=== PATIENT | female | born 1965 | race Caucasian/White ===

== ENCOUNTER 2020-10-24 18:54 | Inpatient (IN) | payer MEDICAID ==
[~2020-10-24] VITALS: Ht 157.5 cm; Wt 73.5 kg
[2020-10-24 19:10] VITALS: BP 117/62
[2020-10-24] MEDS ORDERED: LEVOFLOXACIN750 MG PO (19:15)
[2020-10-24] MEDS ORDERED: PLAVIX 75 MG TA75 MG PO (19:16)
[2020-10-24] MEDS ORDERED: COREG12.5 MG PO (19:16)
[2020-10-24] MEDS ORDERED: ONDANSETRON HCL4 M2 PO (19:16)
[2020-10-24] MEDS ORDERED: NORVASC 2.5 MG2.5 M1 PO (19:17)
[2020-10-24] MEDS ORDERED: ISOSORBIDE MONO30 M1 PO (19:17)
[2020-10-24] MEDS ORDERED: DIUREX WATER P1 EACH PO (19:17)
[2020-10-24] MEDS ORDERED: NEURONTIN 300M300 M2 PO (19:18)
[2020-10-24] MEDS ORDERED: ASPIRIN325 PO (19:18)
[2020-10-24] MEDS ORDERED: POTASSIUM GLUCO99 M2 PO (19:19)
[2020-10-24 20:50] LABS: ABSOLUTE NEUTROPHILS 4.9 thou/uL (1.4-8.2); BASOPHILS 0.6 % (0.0-2.0); EOSINOPHILS 2.4 % (0.0-3.0); HEMATOCRIT 26.8 % (37.0-47.0); MCH 29.5 pg (26.0-34.0); MCHC 33.6 g/dL (28.0-37.0); MCV 87.7 fL (80.0-100.0); MONOCYTES 9.5 % (1.0-8.0); PLATELET COUNT 415 thou/uL (150-400); POLYS 66.5 % (36.0-66.0); RBC 3.06 mil/uL (4.20-5.00); RDW 15.3 % (10.5-14.5); WBC 7.4 thou/uL (4.0-11.0)
[2020-10-24 20:56] LABS: CALCIUM 8.6 mg/dL (8.5-10.1); CREATININE 0.9 mg/dL (0.6-1.0); POTASSIUM 4.2 mmol/L (3.5-5.1)
[2020-10-24 21:02] LABS: ALBUMIN 2.4 g/dL (3.4-5.0); TOTAL BILIRUBIN 0.3 mg/dL (0.2-1.0)
[2020-10-24 22:36] VITALS: BP 117/68
[2020-10-24 23:02] VITALS: BP 110/77
--- NOTE | 2020-10-25 01:21 | NUR ---
ASSUMED CARE OF PT FROM ER AT 2250HRS. PT IS AOX4 AND LETS NEEDS BE KNOWN. PT WAS ORIENTED TO THE UNIT AND HER ROOM. PT IS DOMINICAN SPEAKING BUT IS ABLE TO COMMUNICATE IN [place]. PT WAS ABLE TO ANSWER ALL ADMISSION RELATED QUESTIONS AND SIGN CONSENTS. PT DENIES PAIN, NAUSEA OR SOA. ORDERS RECEIVED AND STARTED. RIGHT FOOT WOUND PIC TAKEN. PT WAS ABLE TO GET COMFORTABLE AND SLEEP. NO S/S OF ACUTE DISTRESS. WILL CONTINUE TO MONITOR.
[2020-10-25 04:05] VITALS: BP 94/54
--- NOTE | 2020-10-25 14:46 | NUR ---
Case opened to follow for dc planning. Pt known to cm from previous admissions. Pt readmitted and will need additional toe amputation due to osteo. Surgery anticipated today. Pt is covid negative. The pt is from home and lives in an apt with family. Dtr is involved and supportive. Pt speaks both Pakistani and Turkish. Will f/u with [employer] regarding her [place] Medicaid application status.
--- NOTE | 2020-10-25 15:43 | NUR ---
ASSUMED CARE OF PATIENT AT APROX. 0800. ASSESSMENT CHARTED. MEDICATIONS HELD PER NPO STATUS. VSS. PATIENT IS A&OX4 AND SAMI SPEAKING. USING DTR PUBLIC RELATIONS CONSULTANT W DOCTOR VIA CELL PHONE. WOUND CARE PHYSICIAN AND NURSE SAW PATIENT TODAY AND CONSULTED SURGEON FOR LIKELY AMPUTATION. DENIES PAIN AND SENSATION ON R FOOT. C/O NAUSEA AND VOMITING; EMESIS CLEAR AND FOAMY. PATIENT SHOWERED INDEPENDENTLY; IS SBA FOR PRECAUTIONS. CURRENTLY SITTING IN CHAIR WITH ABX INFUSING ON R FA. FALL PRECAUTIONS IN PLACE. PATIENT VOICES NO OTHER NEEDS. WILL CONTINUE TO MONITOR
[2020-10-25 15:53] VITALS: BP 133/66
[2020-10-25 20:23] VITALS: BP 111/65
[2020-10-25 20:47] VITALS: BP 109/61
--- NOTE | 2020-10-25 20:54 | NUR ---
I AGREE WITH NURSING ASSESSMENT AND NURSING NOTE DONE BY CASEY/LOCK ASSEMBLER.
[2020-10-25 22:16] VITALS: BP 114/63
[2020-10-26 00:19] VITALS: BP 115/64
--- NOTE | 2020-10-26 04:05 | NUR ---
PATIENT HAD RIGHT FOOT AMPUTATION. MICA WRAP DRESSING ON RIGHT FOOT, RIGHT FOOT ELEVATED. SNACK AND FLUIDS ENCOURAGED. PATIENT ON 3L OF OXYGEN. PATIENT DENIED PAIN OR DISCOMFORT. PATIENT IN BED ASLEEP AT THIS TIME BREATHING REGULAR AND UNLABOURED.
[2020-10-26 04:10] VITALS: BP 118/66
[2020-10-26 08:13] VITALS: BP 116/63
--- NOTE | 2020-10-26 08:56 | NUR ---
Patient vomitted, green and yellow, looks like bile, about 30ml. Dr. Rico francisco, awaiting response.
--- NOTE | 2020-10-26 12:29 | NUR ---
The staff talked to Dr. Gregorio about the vomitting this AM. patient had some jello and morning medication after vomitting, claiming she has felt any nausea. no vomitting during the past 4 hours.
--- NOTE | 2020-10-26 13:28 | NUR ---
Patient reported that after she had some lunch food from the kitchen, she vomitted out. The staff checked, the emesis looked like food. Patient voiced that she had felt nausea before eating but did not report. Zofran given. patient wanted to try the lunch food again. Patient voiced that she didnot feel nausea or vomitted in the morning when eating jello. Patient guessed her nausea feeling might have been caused by grease in the food. will monitor.
[2020-10-26 16:16] VITALS: BP 118/59
--- NOTE | 2020-10-26 19:23 | NUR ---
Dr. Gómez is aware that patient vomitted today.
[2020-10-26 20:18] VITALS: BP 101/54
[2020-10-27 05:42] LABS: HEMATOCRIT 24.2 % (37.0-47.0); HEMOGLOBIN 7.9 gm/dL (12.0-15.0); MCH 28.4 pg (26.0-34.0); MCHC 32.8 g/dL (28.0-37.0); MCV 86.8 fL (80.0-100.0); RBC 2.79 mil/uL (4.20-5.00); RDW 15.3 % (10.5-14.5); WBC 6.9 thou/uL (4.0-11.0)
[2020-10-27 05:54] LABS: CALCIUM 8.5 mg/dL (8.5-10.1); CREATININE 0.9 mg/dL (0.6-1.0); POTASSIUM 4.2 mmol/L (3.5-5.1)
[2020-10-27 07:33] VITALS: BP 134/69
--- NOTE | 2020-10-27 08:02 | NUR ---
PROGRESS PT REPORTED NAUSEA AND VOMITING ON INITIAL ASSESSMENT ZOFRAN GIVEN WITH NO EFFECT, RIGHT KNOW EMESIS IS CLEAR BUT WAS REPORTED THAT IT WAS BILE COLORED EARLIER IN DAY. PT STATED SHE HAS BEEN VOMITING FOR A MONTH ABDOMEN SOFT BUT BOWELS SOUNDS VERY HYPOACTIVE. LUNGS SOUND DIMINISHED BUT PT MOANING. UP WITH MINIMAL ASSIST TO BSC VOIDING QS. ORDER FOR REGLAN OBTAINED AND 1 DOSE GIVEN WITH GOOD EFFECT PT SLEPT THE REST OF THE NIGHT WITH NO MORE EPISODES OF N/V. DRESSING TO RIGHT FOOT REMAINS C/D/I.
--- NOTE | 2020-10-27 12:36 | NUR ---
PT CONTINUES ON IV ZOSYN Q8 OF THIS NOTE. HOPE IS THAT PT WILL BE ABLE TO TRANSITION TO ORAL ABX. PT'S DTR WILL NEED TO BE TRAINED ON WC AT DISCHARGE. PT WAS GIVEN GOOD RX CARD TO USE TO FILLW HER SCRIPTS AT [facility] UPON DC. PT TO FOLLOW UP [facility] CARES AT SHE HAD BEEN PRIOR TO ADMISSION. LIKELY NO OTHER CM INTERVENTION INDICATED. PT TO DC HOME ONCE MEDICALLY STABLE.
[2020-10-27 16:12] VITALS: BP 116/53
--- NOTE | 2020-10-27 18:08 | NUR ---
ASSUMED CARE OF PATIENT THIS AM. ASSESSMENT CHARTED. MEDS ADMINISTERED PER JAN. PATIENT IS A&OX4 BUT SYRIAC SPEAKING. C/O NAUSEA AND DIZZINES. STATES THIS STARTED AT 1600 10/26/20 AND THAT SHE TRIED TO TELL HER PROVIDERS BUT MAYBE THEY DIDN'T UNDERSTAND. BP WAS STABLE THIS AM BUT O2 SAT WAS 86 ON RA. 88 ON 2L AND FINALLY STABLIZED TO 93% ON 4L. CRACKLES WERE ALSO HEARD ON BILATERAL LOWER LOBES. PROVIDER WAS NOTIFIED AND ORDERED A DIURETIC FOR PATIENT. PATIENT VOIDED OFTEN THIS SHIFT AND VOICED FEELING BETTER AFTER LUNCH. FOUND VOMITING AT 1745 PRIOR TO DINNER; GIVEN ZOFRAN AND OBSERVED FURTHER. ON RA NOW SATURATING AT 98%. PT AND OT WORKED W PATIENT AND DETERMINED UNSAFE TO GO HOME W/O ASSISTANCE BUT PATIENT IS UNINSURED. KEYES TIFFANY NOTIFIED AND KEELYGHTER TO COME FOR WOUND CARE EDUCATION PRIOR TO DISCHARGE. STILL C/O DIZZINES AND NAUSEA. WILL ENDORSE TO EFRAIN MENDEZ
[2020-10-27 19:03] VITALS: BP 115/58
--- NOTE | 2020-10-28 01:44 | NUR ---
patient aox4 makes needs known. patient denied pain or discomfort. patient dressing on the right foot is c/d/i. patient encouraged to elevate the right foot. scd on left foot. fall precaution in place. patient in bed asleep at this time breathing regular and unlaboured.
[2020-10-28 05:03] LABS: HEMATOCRIT 25.4 % (37.0-47.0); HEMOGLOBIN 8.3 gm/dL (12.0-15.0); MCH 28.7 pg (26.0-34.0); MCHC 32.8 g/dL (28.0-37.0); MCV 87.3 fL (80.0-100.0); RBC 2.91 mil/uL (4.20-5.00); RDW 15.6 % (10.5-14.5); WBC 6.8 thou/uL (4.0-11.0)
[2020-10-28 05:16] LABS: CALCIUM 8.6 mg/dL (8.5-10.1); CREATININE 0.9 mg/dL (0.6-1.0)
[2020-10-28 06:55] VITALS: BP 143/85
--- NOTE | 2020-10-28 14:44 | HC ---
[facility] [place] [address] CONSULTATION Name: ENRRIQUE VILLEGAS Room #: 454-P ADM IN M.R.#: [id number] Admission: 10/24/20 Attend Phys: Vic Garza MD Discharge: Date of : 69 Report #: [id number] THIS REPORT FOR: cc: FAM - No family physician/PCP FAM - No family physician/PCP Alfie Melendez MD ~ DATE OF SERVICE: 10/25/2020 CHIEF COMPLAINT: Necrosis to the foot. HISTORY OF PRESENT ILLNESS: This is a 55-year-old female patient with whom we are familiar from previous hospitalization with diabetes mellitus, who had had previous gangrenous changes to her right foot. She underwent amputation of fourth and fifth toes and metatarsals. She has returned today with a breakdown of the incision line and now necrosis of the third toe. She has some mild pain associated with this. Otherwise feels fairly well. PAST MEDICAL HISTORY: Significant for the fourth and fifth toe amputations on 09/24/2020. She has a history of cardiomyopathy with an EF of 15-20%, peripheral arterial disease, having undergone stent placements with Interventional Radiology to the superficial femoral artery, right tibioperoneal trunk. The patient has a history of diabetes mellitus, hyperlipidemia and previous cardiac arrest. ALLERGIES: No known drug allergies. SOCIAL HISTORY: Positive for occasional alcohol use. No history of tobacco use. FAMILY HISTORY: Noncontributory. MEDICATIONS: Levaquin, carvedilol, Plavix, Zofran, Norvasc, Neurontin, aspirin, potassium gluconate. REVIEW OF SYSTEMS: CONSTITUTIONAL: The patient denies fever, chills or weight loss. NEUROLOGICAL: The patient denies focal weakness, but does have some neuropathy to her lower extremities. ENT: The patient denies earache, nasal drainage, sore throat. CARDIOVASCULAR: The patient denies chest pain, palpitations or diaphoresis. PULMONARY: The patient denies cough or shortness of breath. GASTROINTESTINAL: The patient denies nausea, vomiting, diarrhea or abdominal pain. ORTHOPEDIC: The patient has swelling and drainage and some discomfort to the [facility] [address] [place] [address] CONSULTATION Name: ENRRIQUE VILLEGAS Room #: 454-P [facility] IN [facility]#: [id number] Admission: 10/24/20 Attend Phys: Vic Garza MD Discharge: Date of : 69 Report #: [id number] right foot. Other systems in a 14-point review of systems are negative. PHYSICAL EXAMINATION: VITAL SIGNS: At this time include temperature 37.2, pulse 93, respiratory rate 16, blood pressure 94/54. GENERAL: This is a somewhat chronically ill-appearing female patient, who appears to be in minimal distress. HEENT: Head normocephalic. Nose and throat are clear. NECK: Supple. ABDOMEN: Soft. Bowel sounds present. EXTREMITIES: Examination of the lower extremities demonstrates the incision line to the lateral aspect of the right foot is necrotic with additional tissue loss. The third toe is ischemic-appearing and peeling and partially necrotic as well. LABORATORY DATA: Include sodium 135, potassium 4.2, chloride 101, CO2 of 24, BUN 17, glucose 213. Albumin 2.4. White blood cell count 7.4 with a hemoglobin of 9.0. CLINICAL IMPRESSION: Necrosis of the right lateral foot, status post prior fourth and fifth toe amputation, now with ischemia of the third toe in the incision line. RECOMMENDATIONS: At this point in time, we will recheck arterial Doppler to evaluate previous blood flow post-stenting approximately a month ago. She will require transmetatarsal amputation. I do not think there is anything that will salvage the existing third toe or the incision line. I discussed this with her in detail. We will use simple dry dressings for now with Betadine paint to the areas of necrosis. I appreciate being asked to see her in consultation. <ELECTRONICALLY SIGNED> By: Alfie Melendez MD 10/28/20 1444 [id number] Alfie Melendez MD /nt
[2020-10-28 15:17] VITALS: BP 117/62
--- NOTE | 2020-10-28 19:32 | NUR ---
Patient felt nausea, ate food brought from the . no vomitting after eating, vomitted salvia in the morning before lunch. Claimed of being weak.
[2020-10-28 20:45] VITALS: BP 118/59
--- NOTE | 2020-10-29 03:16 | NUR ---
PROGRESS PT DROWSY BUT ALERT AND ORIENTED.REPORTS PAIN TO RIGHT FOOT RATES IT A 3 TO 10 TAKING OXYCODONE AND GABAPENTIN WITH EFFECT PT SLEEPS AFTER. IV ANTIBIOTICS CONTINUE ORDERED. AFEBRILE VSS TELE INTACT READING SR/ST. LUNGS DIMINISHED BUT NOT WET SOUNDING THIS SHIFT. ACCUCHECKS AND SSI CONTINUE, PT TOLERATING CLEAR LIQUIDS IN SMALL AMOUNTS, BS HYPOACTIVE ABDOMEN SOFT NON-DISTENDED. VOIDING QS UP TO BSC WITH SBA.
[2020-10-29 06:58] VITALS: BP 120/76
--- NOTE | 2020-10-29 14:59 | NUR ---
ASSUMED PT CARE THIS AM. PT VSS, A&OX4. PT HAS NO COMPLAINTS OF PAIN. MEDS TAKEN WITHOUT COMPLAINT. WOUND DRESSING C/D/I. PT GOAL WAS TO WORK WITH PHYSICAL THERAPY TO GET STRONGER, BUT WORKED MINIMALLY WITH THEM TODAY. IV PATENT. WILL CONTINUE TO MONITOR.
[2020-10-29 16:18] VITALS: BP 117/67
[2020-10-29 19:28] VITALS: BP 106/56
--- NOTE | 2020-10-29 20:49 | NUR ---
THIS NURSE GAVE PATIENT INITIAL MEDICATIONS BEFORE TRANSFERRING TO SICU TO TAKE NEW PATIENTS. PATIENT ALERT AND ORIENTED X4. UP WITH ONE ASSIST TO BSC. DENIES PAIN. COOPERATIVE WITH CARE. BS MONITORED PER ORDER, NO INSULIN NEEDED TONIGHT WITH BS OF 148. RESTING QUIETLY.
[2020-10-30 04:53] VITALS: BP 107/66
[2020-10-30 08:10] VITALS: BP 118/64
--- NOTE | 2020-10-30 08:45 | NUR ---
PT LYING IN BED. DENIES PAIN. RESTING COMFORTABLY. NO NEEDS VOICED. CALL LIGHT WITHIN REACH. FREQUENT OBSERVATION.
--- NOTE | 2020-10-30 08:46 | NUR ---
PT LYING IN BED. DENIES PAIN. RESTING COMFORTABLY. NO NEEDS VOICED. CALL LIGHT WITHIN REACH. FREQUENT OBSERVATION.
[2020-10-30 08:55] VITALS: BP 118/64
[2020-10-30] MEDS ORDERED: PERCOCET PO (09:24)
[2020-10-30] MEDS ORDERED: AUGMENTIN 875-1 EACH PO (09:25)
--- NOTE | 2020-10-30 12:23 | NUR ---
ASSUMED PT CARE THIS AM. PT VSS, A&OX4. PT IV PATENT, FLUIDS INFUING WELL. NO COMPLAINTS OF PAIN. DRESSING C/D/I. PT IS CONTINENT OF B&B, PIVOTS TO THE BSC. MEDS TAKEN WITHOUT COMPLAINT. ON ROOM AIR. PT TO BE DISCHARGED TO HOME. IN DISCHARGE INSTRUCTIONS, PT TO CHANGE DRESSING WITH SUPPLIES. GAS ANALYST REPORTED THAT SHE WOULD CONTACT WOUND CARE TEAM TO SEE IF THEY COULD SEND PATIENT HOME WITH SUPPLIES IN ORDER TO BE ABLE TO CHANGE THIS DRESSING. SUPPLIES TO BE SENT UP. PT NEW ANTIBIOTIC FILLED IN OUTPATIENT PHARMACY, SENT WITH PT ALONG WITH OTHER PRESCRIPTION.
--- NOTE | 2020-10-30 12:59 | NUR ---
ON-GOING ASSESSMENT: CM REVIEWED CHART AND SPOKE WITH ATTENDING. PT HAS ORDERS TO DISCHARGE HOME TODAY. PT REPORTS NEEDING SOME ASSISTANCE WITH PAYING FOR PO ANTIBIOTIC. CM COPIED SCRIPT AND SENT TO [facility] OUT[facility] AND MEDICATIONS COST 12.42 AND WILL BE VOUCHERED THROUGH CASE MANAGEMENT. APPROVAL PER CM DIRECTOR. CM ALSO SPOKE WITH WOUND CARE WHO PROVIDED PATIENT WITH SOME HOME SUPPLIES DUE TO NO INSURANCE AND FINANCIAL STRESSORS. PT ENCOURAGED TO FOLLOW UP WITH OUTPATIENT WOUND CARE. PT ALSO PROVIDED SAFETY NET PACKET/HEALTH RESOURCE GUIDE. PT REPORTS NO FURTHER NEEDS FROM CM.
--- NOTE | 2020-10-31 16:44 | O ---
[facility] [place] [address] OPERATIVE REPORT Name: ENRRIQUE VILLEGAS Room #: 444-P [facility] IN .R.#: [id number] Admission: 10/24/20 Attend Phys: Vic Garza MD Discharge: 10/30/20 Date of : 69 Report #: [id number] THIS REPORT FOR: cc: FAM - No family physician/PCP FAM - No family physician/PCP Amandeep Rollins MD ~ CC: [facility] physician/PCP Vic Garza DATE OF SERVICE: 10/25/2020 SERVICE: Orthopedics. FACILITY: [place] [facility]. SURGEON: Amandeep Rollins MD PLUG GROWER: Sandra Okeefe. PREOPERATIVE DIAGNOSES: 1. Necrosis of the right third toe. 2. Osteomyelitis, right third toe. 3. Wound dehiscence with nonhealing wound of right forefoot. 4. Uncontrolled diabetes. 5. Peripheral arterial disease. 6. Nonhealing wound, right forefoot. POSTOPERATIVE DIAGNOSES: 1. Necrosis of the right third toe. 2. Osteomyelitis, right third toe. 3. Wound dehiscence with nonhealing wound of right forefoot. 4. Uncontrolled diabetes. 5. Peripheral arterial disease. 6. Nonhealing wound, right forefoot. PROCEDURE: Right foot transmetatarsal amputation. COMPLICATIONS: None. DRAINS: None. SPECIMENS: Forefoot. HISTORY: The patient is a female with history of uncontrolled diabetes, who recently underwent fourth and fifth ray amputations with an effort to preserve the foot, which she had worsening of the wound recently and developed necrosis [facility] [address] [place] [address] OPERATIVE REPORT Name: JOSIAH DERASUEROAENRRIQUE Room #: 444-P DIS IN M.R.#: [id number] Admission: 10/24/20 Attend Phys: Vic Garza MD Discharge: 10/30/20 Date of : 69 Report #: [id number] of the third toe. X-rays were consistent with osteomyelitis of the metatarsal shaft distally. She was indicated for revision surgical treatment and I recommended a below-knee amputation versus transmetatarsal amputation recognizing that the BKA gave her the highest chance of successful onetime healing. Given this, however, she still elected to proceed with limb salvage in hopes of achieving successful healing of the wound after transmetatarsal amputation. Risks, benefits, alternatives, and indication of surgery discussed with her, her boyfriend and her daughter and their questions were all answered. Risks include need for further surgery including revision to below-knee amputation as well as following the surgery. PROCEDURE IN DETAIL: After the right lower extremity was correctly identified in the preoperative holding area as the operative extremity, the patient was taken to the operating room where general anesthesia was induced without complication. She was padded appropriately. She was on antibiotic regimen intraoperatively. Right leg was prepped and draped in standard sterile fashion. Time-out procedure was performed. The previous sutures were removed and then using a sharp blade, a generous Pfannenstiel-type incision was created and went with the operative preserving as much of the plantar soft tissues possible as well as dorsal soft tissue and dissection was taken down to the bone where the first, second and third metatarsal was then truncated with the bone cutter. The bony dissection was fine-tuned to eliminate any small edges and the wound was irrigated. Hemostasis was achieved. The previous necrotic wound edges were excised sharply and overall there was good bleeding throughout the forefoot. The soft tissue was assessed for mobility. I felt that there was some additional reduction and tension would be appropriate and so a rongeur was used to perform a limited revision through the osseous amputation site of the fourth and the fifth. There is no evidence of residual osteomyelitis in this bone, but had been close to a nonhealing wound and so I felt that revision was most appropriate. After the third, second and first toes were resected, the soft tissue was debulked. We confirmed bleeding skin edges on all sides and then the soft tissue in general was assessed for overall mobility. This soft tissue repair allowed for the skin to be repaired under less tension. The 0 PDS suture was used to advance the plantar flap laterally up to the dorsal flap and secure knots were achieved without excessive tension. This was carried from laterally to medially. We did have a preplanned skin flap, which was obtained initially so as to give us the best options for coverage. Ultimately, the revision of the fourth and fifth ray amputation allowed for some additional soft tissue mobilization and this did approximate well. The repair was carried on to the medial side of the foot and then the wound was irrigated and the repair was found to be structurally sound. Sterile dressing was applied. The patient was [address] [address] OPERATIVE REPORT Name: ENRRIQUE VILLEGAS Room #: 444-P [facility] IN M.R.#: [id number] Admission: 10/24/20 Attend Phys: Vic Garza MD Discharge: 10/30/20 Date of : 69 Report #: [id number] awakened from anesthesia and taken to recovery room in stable condition. No complications. All counts were reported correct. <ELECTRONICALLY SIGNED> By: Amandeep Rollins MD 10/31/20 1644 [id number] Amandeep Rollins MD /nt
--- NOTE | 2020-11-01 13:08 | PATH ---
[facility] [address] [place] [address] PATHOLOGY RPT PROCEDURE Name: GENO VILLEGAS Room #: 444-P [facility] IN M.R.#: [id number] Admission: 10/24/20 Date of : 69 Discharge: 10/30/20 Report #: [id number] Path Case #: [id number] [facility] Accession Number: [id number] . 01 Material submitted: . foot - RIGHT FOREFOOT. Modifiers: right . 01 Clinical history: . OSTEOMYELITIS . 02 Diagnosis: Bone and soft tissue "right forefoot", amputation: - Multifocal chronic osteomyelitis, with areas of marked acute inflammation, and abscess formation, with associated periostitis and cellulitis. - Multifocal vascular thrombi. - Negative for malignancy. (PILAR/blossom; 10/31/2020) LBQ 11/01/2020 1237 Local . 02 Electronically signed: . Edgar Baez MD, Pathologist NPI- [id number] . 01 Gross description: . . The specimen is received in formalin, labeled "Geno Villegas, right forefoot" and consists of a partial right forefoot consisting of toes 1, 2, and 3 measuring 8.0 x 7.7 x 2.4 cm. All 3 toes have intact pink jenkins nails. Toe 1 is grossly unremarkable. Toe 2 is predominately unremarkable with focal skin sloughing and possible necrosis towards the proximal margin. Toe 3 shows sloughing of the skin with necrosis/mummification which grossly abuts the proximal margin. All 3 bone margins are flat to jagged and irregular. Also received in the container are segments of pink-jenkins skin and bone measuring 7.8 x 7.8 x 2.0 cm. Industrial Psychology Teacher sections are submitted as follows after decalcification: . A1: Toe 1 proximal margin A2: Toe 2 proximal margin A3-A5: Toe 3 from proximal to distal A6: Additional skin and bone (SDY; 10/30/2020) SYU/SYU 10/30/2020 1310 Local . 02 Pathologist provided ICD-10: M86.671, L98.9, L03.031 [place] [address] PATHOLOGY RPT PROCEDURE Name: GENO VILLEGAS Room #: 444-P DIS IN M.R.#: [id number] Admission: 10/24/20 Date of : 69 Discharge: 10/30/20 Report #: [id number] Path Case #: [id number] . 02 CPT . [id number], [id number] Specimen Comment: A courtesy copy of this report has been sent to [phone] Specimen Comment: [id number] Specimen Comment: Report sent to / DR ALEJANDRO Performed at: [address], [place] [id number] MD Mitul Zelaya MD Phone: [phone] Performed at: [address] [id number] MD Aleyda Gilliland MD Phone: [phone]
== END 2020-10-30 14:27 | disposition home or self-care (01) | DRG 239 ==
LOC: ER 18:54 → EROBS 21:45 → 4S 21:45 → 4W 22:49 → 4S 10-29 07:45
PROVIDERS: Hospitalist; Physician Assistant; ADMIT Internal Medicine; ATTEND Internal Medicine
PROC: 0Y6M0ZC Detachment at Right Foot, Partial 3rd Ray, Open Approach (ICD-10-PCS; principal; 2020-10-25)
PROC: 0Y6M0ZB Detachment at Right Foot, Partial 2nd Ray, Open Approach (ICD-10-PCS; principal; 2020-10-25)
PROC: 0Y6M0Z9 Detachment at Right Foot, Partial 1st Ray, Open Approach (ICD-10-PCS; principal; 2020-10-25)
PROC: 0Y6M0ZF Detachment at Right Foot, Partial 5th Ray, Open Approach (ICD-10-PCS; principal; 2020-10-25)
PROC: 0Y6M0ZD Detachment at Right Foot, Partial 4th Ray, Open Approach (ICD-10-PCS; principal; 2020-10-25)
DX: E11.52 Type 2 diabetes mellitus with diabetic peripheral angiopathy with gangrene (principal); J18.9 Pneumonia, unspecified organism; I42.9 Cardiomyopathy, unspecified; M86.8X7 Other osteomyelitis, ankle and foot; I96 Gangrene, not elsewhere classified; E11.69 Type 2 diabetes mellitus with other specified complication; R09.02 Hypoxemia; S91.301A Unspecified open wound, right foot, initial encounter; E11.51 Type 2 diabetes mellitus with diabetic peripheral angiopathy without gangrene; X58.XXXA Exposure to other specified factors, initial encounter; I11.0 Hypertensive heart disease with heart failure; I50.9 Heart failure, unspecified; Z20.828 Contact with and (suspected) exposure to other viral communicable diseases; E78.5 Hyperlipidemia, unspecified; Z79.82 Long term (current) use of aspirin; Z79.899 Other long term (current) drug therapy; Z79.01 Long term (current) use of anticoagulants; Y93.89 Activity, other specified; Y92.89 Other specified places as the place of occurrence of the external cause; Y99.8 Other external cause status; Z90.49 Acquired absence of other specified parts of digestive tract
CPT/HCPCS: 10040; 10045; 10102; 50010; 50101; 50386; 50951; 56525; 57091; 62110; 62900; 70005

== ENCOUNTER 2020-11-01 22:25 | Inpatient (IN) | payer MEDICAID ==
[~2020-11-01] VITALS: Ht 157.5 cm; Wt 69.1 kg
--- NOTE | ~2020-11-01 | HC ---
[facility] [place] [address] CONSULTATION Name: ENRRIQUE VILLEGAS Room #: 214-P ADM IN M.R.#: [id number] Admission: 11/02/20 Attend Phys: Tyler Hallman Discharge: Date of : 69 Report #: [id number] THIS REPORT FOR: cc: NO FAMILY PHYSICIAN or PCP NO FAMILY PHYSICIAN or PCP Gabriel Allred MD ~ DATE OF SERVICE: 11/07/2020 HISTORY OF PRESENT ILLNESS: This is a 55-year-old female patient who was evaluated by me for altered mental status. She is German speaking and hence, the history is somewhat difficult. She does understand some Maltese. Luckily, we also had a German-speaking nurse who was able to translate and she is the one who noticed that this patient was having some alteration in her mental status. She tells me that sometimes, the patient will be okay and other times, her mentation is not very good. I called Dr. Rocha, who is the hospitalist and talked to her. This patient had a below-knee amputation and presently, she is being seen by multiple consultants. She was admitted with right toe pain and discharge. REVIEW OF SYSTEMS: Positive for diabetes, hypertension, right leg amputation, hypothyroidism, peripheral vascular disease, congestive heart failure, cardiomyopathy, hysterectomy, cardiac stents. This was a relevant 14-point review of systems. PAST MEDICAL HISTORY: Positive for multiple vascular disease and cardiac condition. FAMILY HISTORY: Unremarkable. SOCIAL HISTORY: She said she does not smoke or drink alcohol. PHYSICAL EXAMINATION: Indicates she is alert and responsive. As far as mental status examination can be done, it appears unremarkable. Cranial nerve examination, 2-12 was carried out. She said she sees double when I close just one eye. She also sees double but she says she sees the object and then she sees the shadow. I could not look at the fundus. Her both upper extremities moves well and right lower extremity is amputated but she says she can feel the touch on the left side. Her reflexes are difficult to tell because she did not relax. There is no meningeal sign. Cardiorespiratory examination is unremarkable. Blood pressure is 136/77, temperature is 98. LABORATORY DATA: Indicates hemoglobin of 8. Her TSH is normal. She did have a CT scan of the head, which does not show any definite abnormality. [address] [address] CONSULTATION Name: JOSIAH WHITAKERENRRIQUE Room #: 214-P [facility] IN ..#: [id number] Admission: 11/02/20 Attend Phys: Tyler Hallman Discharge: Date of : 69 Report #: [id number] IMPRESSION: This patient had numerous problems during this hospitalization. I suspect some encephalopathy is expected but the patient has so many vascular risk factors that will be desirable to rule out any AGER OPERATOR pathology. I will suggest an MRI of the brain if it can be done and she does not have any contraindication and nurses tell me they will check and I will also get an EEG done. We will see if that shows any pathology and what clinical course she takes. More than 50 minutes of time was spent taking care of this patient today and majority was spent counseling and coordinating. By: 1234 2255 Gabriel Allred MD /nt
--- NOTE | ~2020-11-01 | EEG ---
[facility] [place] [address] ELECTROENCEPHALOGRAM Name: ENRRIQUE VILLEGAS Room #: 214-P ADM IN M.R.#: [id number] Admission: 11/02/20 Attend Phys: Tyler Bales Discharge: Date of : 69 Report #: [id number] THIS REPORT FOR: //name// DATE OF SERVICE: 11/07/2020 This patient is being evaluated for episode of altered mental status. EEG was done by placing the electrode by standard 10-20 system of electrode placement. Both referential and sequential montages were used for recording. Background activity in this patient's EEG is about 7-8 Hz and 30 microvolt. The patient became drowsy that is associated with bilateral slowing and vertex sharp waves. Photic stimulation is unremarkable. Throughout the record, no active epileptiform activity was noticed. IMPRESSION: This patient's EEG is intermixed with some theta range slowing. That is a nonspecific finding, which can occur with encephalopathy, effect of psychotropic medication, dementia, etc. Clinical correlation is recommended. By: 1746 [id number] Gabriel Allred MD /nt
[~2020-11-01 22:25] MED LIST: ASPIRIN325 PO; AUGMENTIN 875-1 EACH PO; COREG12.5 MG PO; DIUREX WATER P1 EACH PO; ISOSORBIDE MONO30 M1 PO; LEVOFLOXACIN750 MG PO; NEURONTIN 300M300 M2 PO; NORVASC 2.5 MG2.5 M1 PO; ONDANSETRON HCL4 M2 PO; PERCOCET PO; PLAVIX 75 MG TA75 MG PO; POTASSIUM GLUCO99 M2 PO
[2020-11-01 22:27] VITALS: BP 132/67
[2020-11-01 23:25] LABS: ABSOLUTE NEUTROPHILS 5.1 thou/uL (1.4-8.2); BASOPHILS 0.6 % (0.0-2.0); EOSINOPHILS 1.7 % (0.0-3.0); HEMATOCRIT 26.7 % (37.0-47.0); HEMOGLOBIN 8.9 gm/dL (12.0-15.0); LYMPHOCYTES 20.1 % (24.0-44.0); MCH 28.6 pg (26.0-34.0); MCHC 33.5 g/dL (28.0-37.0); MCV 85.3 fL (80.0-100.0); MONOCYTES 8.3 % (1.0-8.0); PLATELET COUNT 527 thou/uL (150-400); POLYS 69.3 % (36.0-66.0); RBC 3.12 mil/uL (4.20-5.00); RDW 15.6 % (10.5-14.5); WBC 7.3 thou/uL (4.0-11.0)
[2020-11-01 23:39] LABS: POTASSIUM 3.6 mmol/L (3.5-5.1)
[2020-11-02 01:15] VITALS: BP 138/74
[2020-11-02 01:37] VITALS: BP 128/69
[2020-11-02 01:55] VITALS: BP 124/62
[2020-11-02 02:40] VITALS: BP 129/73
[2020-11-02 06:40] VITALS: BP 121/65
[2020-11-02 07:51] VITALS: BP 131/73
[2020-11-03 08:10] LABS: INR 1.2; PROTIME 12.4 Seconds (9.3-11.4)
[2020-11-03 08:30] VITALS: BP 115/71
[2020-11-03] MEDS ORDERED: IMDUR 30 MG TAB30 M1 PO (09:40)
[2020-11-03 13:22] LABS: BE(vivo) -1.2 mmol/L (-2 to +3); HCO3 24.1 mmol/L (22.0-26.0); PCO2 42.7 mmHg (35.0-45.0); PO2 75.8 mmHg (80.0-100.0); pH 7.369 (7.360-7.450); sO2 94.8 % (92.0-98.0)
[2020-11-03 16:20] VITALS: BP 127/75
[2020-11-03 23:07] LABS: GLYCOHEMOGLOBIN (HGB A1C) 7.9 % (4.8-5.6)
[2020-11-04 03:22] VITALS: BP 112/67
[2020-11-04 07:52] VITALS: BP 116/71
[2020-11-04 15:32] VITALS: BP 101/56
[2020-11-04 21:05] VITALS: BP 106/61
[2020-11-05] VITALS (7 sets, daily range): BP systolic 104–137; BP diastolic 58–72
[2020-11-05 09:46] LABS: ABSOLUTE NEUTROPHILS 5.7 thou/uL (1.4-8.2); BASOPHILS 0.5 % (0.0-2.0); HEMOGLOBIN 6.7 gm/dL (12.0-15.0); RDW 16.4 % (10.5-14.5)
[2020-11-05 09:48] LABS: EOSINOPHILS 0.2 % (0.0-3.0); LYMPHOCYTES 16.4 % (24.0-44.0); MCH 27.7 pg (26.0-34.0); MCHC 31.9 g/dL (28.0-37.0); MCV 86.7 fL (80.0-100.0); MONOCYTES 8.5 % (1.0-8.0); PLATELET COUNT 371 thou/uL (150-400); POLYS 74.4 % (36.0-66.0); RBC 2.42 mil/uL (4.20-5.00); WBC 7.7 thou/uL (4.0-11.0)
[2020-11-05 09:58] LABS: CALCIUM 8.4 mg/dL (8.5-10.1); CREATININE 1.8 mg/dL (0.6-1.0); MAGNESIUM 2.3 mg/dL (1.8-2.4); PHOSPHORUS 4.2 mg/dL (2.5-4.9); POTASSIUM 4.3 mmol/L (3.5-5.1)
[2020-11-05 20:16] LABS: HEMATOCRIT 24.7 % (37.0-47.0)
[2020-11-06 04:30] LABS: CALCIUM 8.6 mg/dL (8.5-10.1); CREATININE 1.5 mg/dL (0.6-1.0); MAGNESIUM 2.1 mg/dL (1.8-2.4); PHOSPHORUS 3.4 mg/dL (2.5-4.9); POTASSIUM 3.7 mmol/L (3.5-5.1)
[2020-11-06 04:45] LABS: ABSOLUTE NEUTROPHILS 5.8 thou/uL (1.4-8.2); BASOPHILS 0.5 % (0.0-2.0); EOSINOPHILS 0.7 % (0.0-3.0); HEMATOCRIT 24.9 % (37.0-47.0); MCH 27.6 pg (26.0-34.0); MCHC 32.1 g/dL (28.0-37.0); MONOCYTES 10.7 % (1.0-8.0); PLATELET COUNT 400 thou/uL (150-400); POLYS 70.1 % (36.0-66.0); RBC 2.89 mil/uL (4.20-5.00); RDW 16.5 % (10.5-14.5); WBC 8.3 thou/uL (4.0-11.0)
[2020-11-06 04:57] VITALS: BP 124/71
[2020-11-06 08:23] VITALS: BP 128/78
--- NOTE | 2020-11-06 09:35 | 2DMMODE ---
[facility] [address] [place] [address] 2 D/M-MODE ECHOCARDIOGRAM Name: JOSIAH WHITAKERENRRIQUE Room #: 214-P ADM IN M.R.#: [id number] Admission: 11/02/20 Attend Phys: Tyler Hallman Discharge: Date of : 69 Report #: [id number] THIS REPORT FOR: cc: NO FAMILY PHYSICIAN or PCP NO FAMILY PHYSICIAN or PCP Felix Augustine MD [facility] ~ APPROVED REPORT Study performed: 11/06/2020 08:56:31 EXAM: Limited 2D, Doppler, and color-flow Echocardiogram Patient Location: Bedside Room #: 214 Status: routine BSA: 1.71 HR: 82 bpm BP: 128/78 mmHg Rhythm: NSR Other Information Study Quality: Good Indications Limited follow up echo for CHF, Short of breath. (Last echo done 09/27/20). Hx: Cardiac arrest, stents, ISCM (15-20%). 2D Dimensions IVSd: 8.12 (7-11mm) LVDd: 52.99 mm PWd: 9.97 (7-11mm) LVDs: 43.97 (25-40mm) Aortic Valve AoV Peak Maico.: 1.37 m/s AO Peak Gr.: 7.52 mmHg Mitral Valve E/A Ratio: 1.9 MV Decel. Time: 165.71 ms MV E Max Maico.: 1.51 m/s MV A Maico.: 0.81 m/s MV PHT: 48.06 ms IVRT: 72.66 ms [facility] [address] [place] [address] 2 D/M-MODE ECHOCARDIOGRAM Name: JOSIAH DERASENRRIQUE CRABTREE Room #: 214-P [facility] IN M.R.#: [id number] Admission: 11/02/20 Attend Phys: Tyler Madrigal Discharge: Date of : 69 Report #: [id number] Tricuspid Valve TR Peak Maico.: 3.50 m/s RAP Estimate: 10.00 mmHg TR Peak Gr.: 49.08 mmHg PA Pressure: 59.00 mmHg Left Ventricle The left ventricle is normal size. There is normal left ventricular wall thickness. Left ventricular systolic function is moderately decreased. LVEF 35%. Inferobasal aneurysm with associated thrombus. Moderate diastolic dysfunction is present (pseudonormal filling). Right Ventricle The right ventricle is normal size. The right ventricular systolic function is normal. Atria Left atrium is dilated. The right atrium size is normal. Aortic Valve Aortic valve leaflets are mildly sclerotic. Mild aortic regurgitation. There is no aortic valvular stenosis. Mitral Valve The mitral valve is normal in structure. Moderate mitral regurgitation. Tricuspid Valve The tricuspid valve is normal in structure. Mild to moderate tricuspid regurgitation. Estimated PAP is 55-60mmHg. Great Vessels IVC is dilated and collapses >50% with inspiration. Pericardium Small pericardial effusion. Pleural effusion noted. <Conclusion> Abbreviated study Left ventricular systolic function is moderate-severely decreased. LVEF 35%. Inferobasal aneurysm with associated thrombus. Moderate diastolic dysfunction is present (pseudonormal filling). [facility] [address] [place] [address] 2 D/M-MODE ECHOCARDIOGRAM Name: ENRRIQUE VILLEGAS Room #: 214-P [facility] IN ..#: [id number] Admission: 11/02/20 Attend Phys: Tyler Madrigal Discharge: Date of : 69 Report #: [id number] Left atrium is dilated. Aortic valve leaflets are mildly sclerotic. Mild aortic regurgitation, no stenosis. The mitral valve is normal in structure. Moderate mitral regurgitation. Small pericardial effusion. Pleural effusion noted. <ELECTRONICALLY SIGNED> By: Felix Augustine MD, FACC 11/06/2035 4 4 Felix Augustine MD, FACC /INF
--- NOTE | 2020-11-06 10:01 | HC ---
[facility] [place] [address] CONSULTATION Name: ENRRIQUE VILLEGAS Room #: 214-P ADM IN M.R.#: [id number] Admission: 11/02/20 Attend Phys: Tyler Hallman Discharge: Date of : 69 Report #: [id number] THIS REPORT FOR: cc: NO FAMILY PHYSICIAN or PCP NO FAMILY PHYSICIAN or PCP Troy John MD ~ DATE OF SERVICE: 11/02/2020 WOUND CARE CONSULTATION PERSONAL PHYSICIAN: None. CHIEF COMPLAINT: Right foot gangrene. HISTORY OF PRESENT ILLNESS: The patient is a 55-year-old female who we have been following for initially, a right great toe wound which subsequently ended up with an amputation. This subsequently failed and the patient was then treated with a transmetatarsal amputation several days ago. The patient supposedly was at home and daughter noticed that the amputation site was becoming black. They contacted Dr. Rollins who recommended they come to the hospital to be evaluated. The patient now is being evaluated for a possible kgemj-yuh-thaw amputation. Prior to this, the patient did have fairly significant peripheral arterial disease, which was treated with angioplasty and stents. The patient himself denies any actual pain right now. The patient states that she has had a low-grade fever and chills. The patient states that she has had no other associated wounds. PAST MEDICAL HISTORY: Significant for diabetes; hypertension; coronary artery disease, congestive heart failure; severe peripheral arterial disease, status post intervention. The initial measures for limb salvage, which was initially toe amputation, now transmetatarsal amputation, both of which have failed. CURRENT MEDICATIONS: Multiple. I reviewed the patient's medication list. The patient is on vancomycin and Zosyn. DRUG ALLERGIES: None. SOCIAL HISTORY: The patient does not smoke or drink alcohol. Lives independently. FAMILY HISTORY: Not pertinent to current medical condition. REVIEW OF SYSTEMS: CONSTITUTIONAL: The patient had low-grade fevers and chills. [address] [address] CONSULTATION Name: JOSIAH DERASREINALDO CRABTREEA Room #: [address] [place] [address] [place] ..#: [id number] Admission: 11/02/20 Attend Phys: Tyler Hallman Discharge: Date of : 69 Report #: [id number] NEUROLOGIC: The patient denies numbness, tingling, weakness in arms or legs. EYES: No complaints. ENT: No complaints. CARDIAC: The patient denies chest pain, palpitations or peripheral edema. RESPIRATORY: The patient denies shortness of breath, cough or wheezes. GASTROINTESTINAL: The patient denies nausea, vomiting or abdominal pain. GENITOURINARY: The patient denies urgency or frequency. MUSCULOSKELETAL: No complaints. SKIN: There is dry gangrene to the right foot. PHYSICAL EXAMINATION: VITAL SIGNS: Stable. The patient is afebrile. GENERAL: This is an alert and oriented x 3, pleasant female who is in no acute distress. HEENT: Normocephalic, atraumatic. Mucous membranes are somewhat dry. Pupils are round. Sclerae are white. NECK: Without JVD. LUNGS: Clear. HEART: Regular. ABDOMEN: Soft, nontender. EXTREMITIES: Evaluation of right lower extremity reveals 1+ dorsalis pedis pulse. The transmetatarsal amputation site is black and necrotic. It is fairly dry with occasional bloody drainage without significant odor. Slightly tender to palpation. Right heel is intact. Left lower extremity is totally intact. NEUROLOGIC: Cranial nerves 2-12 grossly intact. Motor and sensory grossly intact. LABORATORY DATA: White count 7.3, hemoglobin 8.9. Sed rate 95. BUN 14, creatinine 1.0. C-reactive protein is 159. Albumin 2.4. X-ray of the foot shows irregular cortical margins of the mid foot suggestive of osteomyelitis. WOUND CARE COURSE: I had a long discussion with the patient, her daughter by phone and the patient's family in regard to proceeding with a wlfsc-hpu-pdez amputation. The patient and everyone is agreeable to proceeding with bsfls-jbz-mphs amputation at this time given the failed measures trying to salvage the limb. I spent greater than 30 minutes talking with the family about this. I also spoke with Dr. Amandeep Rollins and reviewed this with him. He is in agreement with ktuby-fzz-qhjf amputation as well. IMPRESSION: 1. Dry gangrene of the right transmetatarsal amputation site. 2. Severe peripheral arterial disease. [address] [address] CONSULTATION Name: ENRRIQUE VILLEGAS Room #: 214-P [facility] IN M.R.#: [id number] Admission: 11/02/20 Attend Phys: Tyler Hallman Discharge: Date of : 69 Report #: [id number] 3. Diabetes mellitus. 4. History of congestive heart failure. 5. History of coronary artery disease. 6. Protein-calorie malnutrition -- severe with an albumin of 2.4. PLAN: We will proceed with hmohr-zpw-gqws amputation tomorrow morning by the orthopedic surgeons. In time, we will place Betadine and dry gauze over the amputation site. We will continue to try to maximize the patient's oral protein supplementation for healing. Once the amputation has been performed, we will proceed with rehabilitation, physical therapy and occupational therapy for strengthening. We will continue all other current medications. All questions and concerns were answered by myself. <ELECTRONICALLY SIGNED> By: Troy John MD 11/06/20 1001 1013 0222 Troy John MD /hyacinth
[2020-11-06 11:42] VITALS: BP 113/62
[2020-11-06 15:49] VITALS: BP 121/66
[2020-11-06 19:52] VITALS: BP 107/54
[2020-11-07 05:27] VITALS: BP 114/57
[2020-11-07 05:46] LABS: CALCIUM 8.9 mg/dL (8.5-10.1); CREATININE 1.3 mg/dL (0.6-1.0); POTASSIUM 3.6 mmol/L (3.5-5.1)
[2020-11-07 08:00] VITALS: BP 136/77
[2020-11-07 11:30] VITALS: BP 135/77
--- NOTE | 2020-11-07 12:06 | PATH ---
[facility] [address] [place] [address] PATHOLOGY RPT PROCEDURE Name: RAHMAN GENO WHITAKER Room #: 214-P ADM IN M.R.#: [id number] Admission: 11/02/20 Date of : 69 Discharge: Report #: [id number] Path Case #: [id number] [facility] Accession Number: [id number] . 01 Material submitted: . knee - RIGHT BELOW KNEE. Modifiers: right . 01 Clinical history: . RIGHT TOES AMPUTATED ON , NOW INFECTED, OSTEOMYELITIS OF THE FOOT . 02 Diagnosis: Leg, right, below knee amputation (and stump of foot): - Ulceration along with gangrenous necrosis and marked acute inflammation of skin and subcutaneous tissue. - Acute inflammation extends into underlying bone associated with acute osteomyelitis. - Anterior tibial vessels showing complete occlusion of the lumen. - Posterior tibial vessel showing atherosclerotic changes. - Skin and soft tissue margin unremarkable. - Bone margin grossly unremarkable. . (IUV:mml; 11/06/2020) QLM 11/06/2020 1654 Local . 02 Electronically signed: . Aleyda Gilliland MD, Pathologist NPI- [id number] . 01 Gross description: . Received fresh labeled "Geno Villegas, right below-knee" is a below-knee amputation consisting of a portion of distal lower leg (25.5 x 9.1 x 6.7 cm) and stump of foot (14.6 x 9.0 x 9.0 cm). The proximal aspect has a smooth tibia and fibula bone margin, consistent with surgical margins. The skin and soft tissue margins are smooth and grossly viable, also consistent with surgical margins. The distal aspect of the foot displays a red-black discolored and ulcerated transmetatarsal amputation site measuring 9.2 x 5.3 x 0.5 cm. This area is located 14.5 cm from the closest skin and soft tissue resection margins and 20.2 cm from the closest bone resection margin. The anterior and posterior tibial arteries are identified and display focal calcification and stenosis of less than 10 percent. The dorsalis pedis artery is identified and does not grossly display calcification or stenosis. Canteen Manager sections of the specimen are submitted as follows: A1 anterior and posterior tibial arteries at resection margin A2 dorsalis pedis artery A3 sales representative cash registers closest skin and soft tissue margins [address] [address] PATHOLOGY RPT PROCEDURE Name: GENO VILLEGAS Room #: 214-P ADM IN M.R.#: [id number] Admission: 11/02/20 Date of : 69 Discharge: Report #: [id number] Path Case #: [id number] A4 bone marrow of tibia and fibula at resection margin (decalcified) A5-A6 sections of transmetatarsal amputation site A7 bone underlying transmetatarsal amputation site (decalcified) ([facility] [place]; 11/03/2020) [facility] 11/03/2020 1735 Local . 02 Pathologist provided ICD-10: M86.161, I96, L98.499 . 02 CPT . 628409, 398134 Specimen Comment: A courtesy copy of this report has been sent to [phone] Specimen Comment: [phone], Specimen Comment: Report sent to ,DR MUSE / DR KEE Performed at: [address], [place] [id number] MD Mitul Zelaya MD Phone: [phone] Performed at: [address] [id number] MD Aleyda Gilliland MD Phone: [phone]
[2020-11-07 15:35] VITALS: BP 121/74
[2020-11-07 21:09] VITALS: BP 112/52; BP 119/58
[2020-11-07 22:21] VITALS: BP 127/54
[2020-11-08 03:58] VITALS: BP 128/74
[2020-11-08 08:47] VITALS: BP 125/68
[2020-11-08 11:49] VITALS: BP 116/68
[2020-11-08] MEDS ORDERED: SENNA-TIME S T1 EACH PO (12:01)
[2020-11-08] MEDS ORDERED: LASIX 40 MG TAB40 M1 PO (12:01)
[2020-11-08] MEDS ORDERED: NORCO 7.5-3251 EACH PO (12:01)
[2020-11-08] MEDS ORDERED: ADULT LOW DOSE81 MG PO (12:01)
[2020-11-08 16:02] VITALS: BP 119/71
[2020-11-08 17:25] VITALS: BP 119/71
--- NOTE | 2020-11-10 15:12 | O ---
[facility] [place] [address] OPERATIVE REPORT Name: ENRRIQUE VILLEGAS Room #: 214-P [facility] IN M.R.#: [id number] Admission: 11/02/20 Attend Phys: Tyler Hallman Discharge: 11/08/20 Date of : 69 Report #: [id number] THIS REPORT FOR: cc: NO FAMILY PHYSICIAN or PCP NO FAMILY PHYSICIAN or PCP Prosper Miller MD ~ CC: Tyler Hallman NO PCP DATE OF SERVICE: 11/03/2020 PREOPERATIVE DIAGNOSIS: Right foot osteomyelitis. POSTOPERATIVE DIAGNOSIS: Right foot osteomyelitis. PROCEDURE: Right yvxep-dde-uumh amputation. SURGEON: Dr. Prosper Miller. PRODUCT CONSULTANT: Melly Han. ANESTHESIA: General. ESTIMATED BLOOD LOSS: Minimal. DRAINS: No drains. TOURNIQUET TIME: One hour. DESCRIPTION OF PROCEDURE: The patient brought to the operating room where she was placed under general anesthesia. Once under adequate general anesthesia, her right lower extremity was prepped and draped in sterile manner. The extremity was elevated and tourniquet placed to 300 mmHg. A fishmouth incision about the mid to distal tibia was then made. This was dissected down through soft tissue to the tibia and fibula. Exposure of both of the bones was made. Dissection was then carried out to find the posterior tibial and peroneal vessels. These were then clamped and suture ligated with 0 silk suture. An oscillating saw was used to transect the tibia and then the fibula in an oblique fashion. A few centimeters proximal to this, the anterior tibia was bevelled with the oscillating saw as well. Once complete, the wound was irrigated copiously. The posterior tibial nerve was incised proximal to the bone cut with a pair of Tobin scissors. The wound was irrigated once again copiously. Any vessels again were ligated with 0 silk suture. The wounds were then closed with 1 Vicryl in the deep fascia, 2-0 Vicryl in subcutaneous tissues and yanet were used for the skin. The wounds were dressed with Xeroform, 4 x 4s, and a sterile soft compressive dressing was placed. Tourniquet was let down at approximately [facility] [address] [place] [address] OPERATIVE REPORT Name: ENRRIQUE VILLEGAS Room #: 214-P [facility] IN [facility].#: [id number] Admission: 11/02/20 Attend Phys: Tyler Hallman Discharge: 11/08/20 Date of : 69 Report #: [id number] 1 hour. Toes were pink and warm with good capillary refill. There were no complications from the procedure. The patient tolerated the procedure well and was taken to recovery room without incident. <ELECTRONICALLY SIGNED> By: Prosper Miller MD 11/10/20 1512 1342 Prosper Miller MD /nt
== END 2020-11-08 18:45 | DRG 239 ==
LOC: ER 22:25 → EROBS 11-02 01:16 → 4S 11-02 01:16 → 4W 11-02 01:16 → 4S 11-03 02:07 → 2N 11-05 14:40
PROVIDERS: Emergency Medicine; Hospitalist; Internal Medicine; Nurse Practitioner Family; ADMIT Hospitalist; ATTEND Hospitalist
PROC: 0Y6H0Z2 Detachment at Right Lower Leg, Mid, Open Approach (ICD-10-PCS; principal; 2020-11-03)
PROC: 30233N1 Transfusion of Nonautologous Red Blood Cells into Peripheral Vein, Percutaneous Approach (ICD-10-PCS; 2020-11-05)
DX: E11.52 Type 2 diabetes mellitus with diabetic peripheral angiopathy with gangrene (principal); E43 Unspecified severe protein-calorie malnutrition; J96.01 Acute respiratory failure with hypoxia; I42.9 Cardiomyopathy, unspecified; I96 Gangrene, not elsewhere classified; L03.115 Cellulitis of right lower limb; M31.9 Necrotizing vasculopathy, unspecified; J98.11 Atelectasis; M86.8X7 Other osteomyelitis, ankle and foot; E03.9 Hypothyroidism, unspecified; E11.51 Type 2 diabetes mellitus with diabetic peripheral angiopathy without gangrene; I50.9 Heart failure, unspecified; E11.69 Type 2 diabetes mellitus with other specified complication; I25.10 Atherosclerotic heart disease of native coronary artery without angina pectoris; E11.621 Type 2 diabetes mellitus with foot ulcer; I11.0 Hypertensive heart disease with heart failure; Z20.828 Contact with and (suspected) exposure to other viral communicable diseases; E11.40 Type 2 diabetes mellitus with diabetic neuropathy, unspecified; D64.9 Anemia, unspecified; Z95.820 Peripheral vascular angioplasty status with implants and grafts; Z89.431 Acquired absence of right foot; Z95.5 Presence of coronary angioplasty implant and graft; Z79.82 Long term (current) use of aspirin; Z79.899 Other long term (current) drug therapy
CPT/HCPCS: 10040; 10081; 10194; 10195; 50010; 50101; 50386; 51412; 53000; 56524; 56525; 57091; 57180; 62110; 62900; 70005

== ENCOUNTER 2020-11-08 16:07 | Inpatient (IN) | payer OTHER ==
[~2020-11-08] VITALS: Ht 157.5 cm; Wt 68.7 kg
--- NOTE | ~2020-11-08 | PLAN ---
[facility] [place] [address] REHAB UNIT PLAN OF CARE Name: ENRRIQUE VILLEGAS Room #: 511-P ADM IN M.R.#: [id number] Admission: 11/08/20 Attend Phys: Mu Sy MD Discharge: Date of : 69 Report #: [id number] THIS REPORT FOR: cc: NO FAMILY PHYSICIAN or PCP NO FAMILY PHYSICIAN or PCP Mu Sy MD ~ DATE OF SERVICE: 11/10/2020 PROGRESS NOTE/OVERALL PLAN OF CARE. SUBJECTIVE: The patient is seen back in followup. She was in no specific distress. OBJECTIVE: VITAL SIGNS: Temperature 98, pulse 80, respirations 18, blood pressure 124/77. GENERAL: She is alert, pleasant. HEENT: Appeared to be benign. CHEST: Sounded clear. CARDIAC: Regular rate and rhythm. ABDOMEN: Bowel sounds positive, nontender. EXTREMITIES: She has the right below-knee amputation, which is dressed. She has an AmpuShield. Left lower extremity, no focal calf swelling and no evidence of left heel breakdown. Functionally, she is min assist sit to stand. She is hopping 6 feet, front-wheeled walker, mod assist. In occupational therapy, lower body dressing is max assist, upper body dressing is supervision. ASSESSMENT: 1. Right foot recurrent osteomyelitis, status post below-knee amputation 11/03/2020. 2. Questionable vasculitis. 3. Acute blood loss anemia, status post transfusion. 4. Premorbid peripheral neuropathy. 5. Peripheral vascular disease. 6. Coronary artery disease with history of stent. 7. Congestive heart failure with cardiomyopathy with decreased ejection fraction of 15-20%. 8. Hypertension. 9. Diabetes mellitus type 2. 10. Hypothyroidism. 11. Hypokalemia. PLAN: The overall plan of care is based on the preadmission screen and information garnered from therapy assessments. 1. Estimated length of stay is probably 7-10 days. 2. Medical prognosis is reasonably good. [facility] [address] [place] [address] REHAB UNIT PLAN OF CARE Name: JOSIAH DERASREINALDO CRABTREEA Room #: 511-P [facility] IN ..#: [id number] Admission: 11/08/20 Attend Phys: Mu Sy MD Discharge: Date of : 69 Report #: [id number] 3. Anticipated interventions includes the interdisciplinary acute inpatient rehabilitation program. 4. Anticipated functional outcomes would be for the patient to improve with basic mobility, so that she can return back to the home setting, also to improve as far as ADLs. 5. Discharge destination would be back with her significant other in an apartment. She does have 5 steps; however. She was doing the stairs backwards on her bottom prior. She has also a granddaughter involved. 6. Expected therapy by discipline includes PT and OT 1-1/2 hours per day each five days a week throughout the duration of the acute inpatient rehabilitation stay. The patient's prognosis for significant practical improvement within a reasonable period of time appears good. Given the patient's complex medical condition and risk of further medical complications, rehabilitation services could not be safely provided at a lower level of care such as a retirement facility. She does have Infectious Disease involved as well as the wound care and multiple contract consultant physicians. By: [id number] [id number] Mu Sy MD /[facility]
[~2020-11-08 16:07] MED LIST changes: +ADULT LOW DOSE81 MG PO; +IMDUR 30 MG TAB30 M1 PO; +LASIX 40 MG TAB40 M1 PO; +NORCO 7.5-3251 EACH PO; +SENNA-TIME S T1 EACH PO
[2020-11-08 19:57] VITALS: BP 123/87
--- NOTE | 2020-11-09 02:58 | NUR ---
ADMITTED TO THE UNIT AT APPROXIMATELY 1900. PT IS A/O X4 AND IS UP WITH ASSISTANCE TO THE BSC WITH GB. ADMISSION COMPLETED. CARE PLAN ACTIVATED. DENIES ANY PAIN OR DISCOMFORT. VSS. MEDICATIONS GIVEN PER MAR. AT THIS TIME PT IS LYING IN HER BED AND APPEARS TO BE ASLEEP. DRSG TO R LE IS C/D/I. FALL PRECAUTIONS ARE IN PLACE, CALL LIGHT IS WITHIN REACH. SPOKE WITH ADVERTISING COORDINATOR. SHE WOULD LIKE DAILY WTS TO BE COMPLETED AT 0900 WITH A STANDING SCALE. WILL PASS THIS ALONG TO DAY SHIFT IN REPORT. FALL PRECAUTIONS ARE IN PLACE, CALL LIGHT IS WITHIN REACH. WILL CONTINUE TO MONITOR.
[2020-11-09 06:02] LABS: HEMATOCRIT 25.7 % (37.0-47.0); HEMOGLOBIN 8.2 gm/dL (12.0-15.0); MCH 27.1 pg (26.0-34.0); MCHC 31.9 g/dL (28.0-37.0); RBC 3.02 mil/uL (4.20-5.00); RDW 16.1 % (10.5-14.5); WBC 5.6 thou/uL (4.0-11.0)
[2020-11-09 06:13] LABS: ANION GAP 10 mmol/L (7-16); BUN 12 mg/dL (7-18); CALCIUM 8.6 mg/dL (8.5-10.1); CHLORIDE 103 mmol/L (98-107); CO2 27 mmol/L (21-32); CREATININE 0.9 mg/dL (0.6-1.0); GLUCOSE 136 mg/dL (74-106); POTASSIUM 3.2 mmol/L (3.5-5.1); SODIUM 140 mmol/L (136-145)
[2020-11-09 08:00] VITALS: BP 128/78
[2020-11-09 11:37] LABS: % SATURATION 15 % (20-39); IRON 30 ug/dL (50-170); TIBC 204 ug/dL (250-450)
[2020-11-09 11:56] LABS: FOLIC ACID 16.2 ng/mL (8.6-58.9)
[2020-11-09 12:18] LABS: CHOLESTEROL 167 mg/dL (<200); HDL CHOLESTEROL 21 mg/dL (>40); LDL CHOLESTEROL 117 mg/dL (<100); TRIGLYCERIDE 148 mg/dL (<150); VLDL 30 mg/dL (<40)
--- NOTE | 2020-11-09 15:15 | NUR ---
chart review. unable to visit with her rt working with therapy. cm visited with her daughter xavi via phone call intro to cm, team meeting and dcp " she lives with her boyfriend, independent when feeling ok. boyfriend going to have to go back to work, he works outside the home. has used wheel chair, walker with seat. she moved from [place] 5 years ago. goes to but don't know who it is with. thank you for calling"/xavi. will cont following as needed for dc need. few steps 4 to get to apartment.
--- NOTE | 2020-11-09 16:09 | NUR ---
ASSUMED CARES AT 0700. PT AWAKE, ALERT AND ORIENTED*4, DENIES PAIN AT THIS TIMES. VITALS REMAIN STABLE. RIGHT BKA INCISION CLEANED AND DRESSING CHANGED, SEROUS DRAINAGE NOTED AND SITE IS INFLAMMED THAN LAST NOTED, WOUNDCARE AND INFECTIOUS DISEASE PROVIDERS AWARE, CULTURE ORDERED. PT PARTICIPATED WELL IN THERAPY. UP WITH 1 MIN ASSIST, GB AND WALKER. Q1H VISUAL CHECKS. CALL LIGHT WITHIN REACH. FALL PRECAUTIONS IN PLACE
[2020-11-09 16:38] LABS: MAGNESIUM 1.9 mg/dL (1.8-2.4)
[2020-11-09 20:12] VITALS: BP 124/77
--- NOTE | 2020-11-09 23:55 | NUR ---
ASSUMED CARE OF PT AT 1915. PT IS A&OX4. IS ON ROOM AIR. IS STABLE. REPORTS PAIN IN RBKA THAT IS BEING MANAGED WITH PAIN MEDS & OTHER THERAPUETIC TECHNIQUES. IS UP WITH 1 ASSIST, YOANNA MADDOX W TO BSC. FALL PRECAUTIONS & HOURLY ROUNDING CONTINUED THIS SHIFT. PT IS ABLE TO TURN SELF IN BED, LABS & VITALS REVIEWED. WILL CONTINUE TO MONITOR.
[2020-11-10 08:00] VITALS: BP 112/69
--- NOTE | 2020-11-10 13:08 | NUR ---
Nutrition: pt admit to rehab with right foot recurring osteomyelitis, S/P Right BKA. Hx DM, PAD, CHF. Recent oral intake is fairly good, 50-100% of with glucerna BID-pt enjoys. Pt feels UBW is around 160#. Current 155#. Would expect some loss with BKA, follow trends. Reviewed protein needs/sources for wound healing. BG 144-226. A1C 7.9. RD provided review of DM diet with pt-see education log for details. Consider low nutrition risk with interventions in place.
[2020-11-10 14:17] LABS: HEMOGLOBIN 8.7 gm/dL (12.0-15.0)
[2020-11-10 14:20] LABS: HEMATOCRIT 27.6 % (37.0-47.0); MCH 26.9 pg (26.0-34.0); MCHC 31.5 g/dL (28.0-37.0); MCV 85.4 fL (80.0-100.0); RBC 3.24 mil/uL (4.20-5.00); WBC 6.6 thou/uL (4.0-11.0)
--- NOTE | 2020-11-10 15:18 | NUR ---
ASSUMED CARES AT 0700. PT AWAKE, ALERT AND ORIENTED*4. DENIES PAIN. VITALS REMAIN STABLE. IV ANTIBIOTICS ADMINISTERED PER ORDER VIA LEFT FOREARM PIV. SACRAL WOUND CLEANED AND CREAM APPLIED PER ORDER. RIGHT BKA SITE CLEANED AND DRESSING CHANGED PER ORDER. PT PARTICIPATED WELL IN THERAPY AND CONTINUES TO PROGRESS TOWARDS DC GOALS. Q1H VISUAL CHECKS. CALL LIGHT WITHIN REACH. FALL PRECAUTIONS IN PLACE
[2020-11-10 17:34] LABS: ABSOLUTE NEUTROPHILS 3.9 thou/uL (1.4-8.2)
[2020-11-10 17:35] LABS: ANISOCYTOSIS 1+
[2020-11-10 17:58] LABS: PLATELET COUNT 536 thou/uL (150-400)
[2020-11-10 20:00] VITALS: BP 121/66
--- NOTE | 2020-11-11 04:09 | NUR ---
DENIES PAIN. APPRECIATES GABAPENTIN FOR NUMBNESS. UP TO TOILET FOR VOID, SILVADENE AND OPTIFOAM BORDER TO SACRAL AND BILATERAL BUTTOCKS WOUND WORSE ON HER RIGHT. IV ANTIBIOTICS GIVEN THROUGH LEFT FOREARM PERIPHERAL IV SITE. TURNING SELF IN BED. R BKA SITE MICA WRAP DRY AND INTACT
[2020-11-11 07:30] VITALS: BP 128/69
--- NOTE | 2020-11-11 13:01 | NUR ---
ASSUMED CARE AT 0700. PT SLEPT FAIRLY WELL. DENIES ANY PAIN. PT IS ALERT AND ORIENTATED. APPETITE IS FAIR. ON METFORMIN BUT REFUSES DUE TO ITS MAKING HER HAVING FREQUENT STOOLS AND STOMACH DISCOMFORT. SHE PREFERS TO BE ON INSULIN SHE IS TAKING THEM AT HOME. DR MORRISSEY NOTED, AND CHANGES MADE TO DC METFORMIN AND START TRADJENTA AND SSI. PT STUMP DRESSING AND COCCYX AREA DRESSING DONE. NOTED SOME BLOOD IN HER INCISION SITE, NO SIGN OF INFLAMMATION SEEN. PARTICIPATING IN THERAPY. ON IV ABX. CONT TO MONITOR,
[2020-11-11 20:00] VITALS: BP 123/71
--- NOTE | 2020-11-12 03:04 | NUR ---
PT PLEASANT AND COOPERATIVE TONIGHT. ALERT AND ORIENTED AT CHANGE OF SHIFT. PT UP TO W/C AND ON TOILET TO VOID WITH 1 ASSIST. PT TOOK HS MEDS WITH WATER TOLERATING WELL. PT APPEARS TO BE SLEEPING SOUNDLY WITH HOURLY ROUNDING CHEKCS. BED ALARM ON AND CALL LIGHT IN REACH. WILL CONTINUE TO MONITOR.
[2020-11-12 07:20] VITALS: BP 133/70
[2020-11-12 20:00] VITALS: BP 109/54
--- NOTE | 2020-11-13 00:46 | NUR ---
ASSUMED CARE APPROX 1900 EVENING 11/12. PT ALERT AND ORIENTED X4 AT CHANGE OF SHIFT. PT STATED SHE HAD A GOOD DAY. PT TOOK HS MEDS WITH WATER TOLERATING WELL. PT APPEARS TO BE SLEEPING SOUNDLY WITH HOURLY ROUNDING CHECKS. BED ALARM ON AND CALL LIGHT IN REACH. WILL CONTINUE TO MONITOR.
[2020-11-13 07:20] VITALS: BP 123/71
--- NOTE | 2020-11-13 12:48 | NUR ---
ASSUMED CARE AT 0700. PT HAD AN UNEVENTFUL NIGHT AND SLEPT FAIRLY WELL. COMPLAINED OF THROBBING HEADACHE, BP 123/71 BLOOD SUGAR 221. HER SCHEDULED CARVEDILOL GIVEN AND WAS TREATED WITH INSULIN. APPETITE IS FAIR, TAKES HER PROTEIN SUPPLEMENT 100%. COMPLAINED OF DIZZINESS AROUND 1110 WHEN OT WAS TO HELP HER WITH SHOWER AND NOTED HER BP 101/69 HR 79. DENIES ANY NAUSEA, VISION CHANGES, EAR FULLNESS, HEMATURIA OR ABDOMINAL PAIN. SHE MANAGED TO GET HER SHOWER WITH OT. SYMPTOMS REMAINS SAME. BS WAS 134. ESCOBAR RECOVERY RN AND DR GONZALEZ NOTIFIED. STAT VANCO TROUGH DONE AND IV VANCO DISCONTINUED. AT 1200, PT REASSESSED AND REPORTED FEELING BETTER AND PT ENCOURAGE TO DRINK MORE FLUID BUT REFUSED TO EAT DUE TO FOOD NOT APPETIZING. SHE DRANK 2 CAN OF LITO WILSON INSIDE OUTSIDE SALES REPRESENTATIVE ALSO INFORMED FOR ANY DIETARY CHANGES. WILL CONT TO MONITOR.
[2020-11-13 13:19] LABS: HEMATOCRIT 28.5 % (37.0-47.0); MCHC 31.6 g/dL (28.0-37.0); MCV 85.5 fL (80.0-100.0); RBC 3.33 mil/uL (4.20-5.00); WBC 5.2 thou/uL (4.0-11.0)
[2020-11-13 13:23] LABS: CALCIUM 9.2 mg/dL (8.5-10.1); CREATININE 1.1 mg/dL (0.6-1.0); POTASSIUM 4.4 mmol/L (3.5-5.1)
[2020-11-13 20:19] VITALS: BP 114/64
--- NOTE | 2020-11-14 00:57 | NUR ---
PT ALERT AND ORIENTED X 4. UP TO W/C PIVOT TRANSFER AND TO BR WITH ASSIST X 1. DRESSING TO RIGHT BKA C/D/I. SALINE LOCK TO LFA INTACT AND PATENT. PT C/O PAIN IN RIGHT LEG. TYLENOL GIVEN WITH RELIEF OF PAIN VERBALIZED. BED ALARM ON FOR SAFETY. PT CHECKED ON HOURLY ROUNDS.
[2020-11-14 07:30] VITALS: BP 118/67
--- NOTE | 2020-11-14 10:00 | NUR ---
PT UP IN WC TO THERAPIES, VERY COOPERATIVE AND MOTIVATED. NOTED THAT PT DENIES PAIN THIS AM, AND IS PLEASED WITH LOWER BLOOD GLUCOSE LEVELS STATING, "I ATE SALAD ALL DAY YESTERDAY." DRESSING CHANGED TO BUTTOCKS WOUNDS AND NOTED THAT THESE ARE HEALING WELL. PT DOING PRESSURE RELIEFS AND TURNING SELF WHEN IN BED.
--- NOTE | 2020-11-14 16:58 | NUR ---
TEAM CONFERENCE: PT PT HAS WOUND. WILL NEED OUTPT APPT SCHEDULED W/DESIREE, PT STATED "I HAVE A DESIREE CARD." PT WILL NEED A W/C AND SHOWER BENCH, PT DTR, ANTONIETTA STATED, "I CAN GET IT. THAT'S NO PROBLEM." ANTONIETTA BROUGHT HER DTR BACK TO [place] AFTER PT CAME TO HOSPITAL SO SHE IS CURRENTLY UNAVIAL FOR TRAINING. GRND DTR SET TO RTRN TO SCHOOL IN DEC, SO ANTONIETTA DOESNT KNOW IF SHE WILL BE ABLE TO STAY W/AND ASSIST PT. "WE HAVE TO FIGURE SOMETHING OUT OVER THE NEXT COUPLE OF DAYS." ANTONIETTA PLANS TO SPK W/HER SIBLINGS WHO ALL [facility] THE IDEAL SITUATION IS TO HAVE PT STAY IN [place] FOR A FEW WEEKS TO GET THE ASSISTANCE SHE NEEDS. PT UPSET THAT SHE ISN'T D/C'G TODAY, [employer] D/C DATE IS 11/23. PT HAS A WALKER.
[2020-11-14 20:12] VITALS: BP 114/68
--- NOTE | 2020-11-14 20:14 | NUR ---
PT WAS TEARFULK THIS AFTERNOON, AND WHILE HAVING DRESSING CHANGED THIS EVENING, WAS ABLE TO OPEN UP TO RN REGARDING HER FEELINGS OF LOSS, SHOCK AT HOW QUICKLY HER TOES "," AND FRUSTRATION REGARDING HER PROLONGED HOSPITALIZATION TIME. RN ACTIVELY LISTENED AND PROVIDED ENCOURAGEMENT AND REASSURANCE THAT SHE IS MAKING PROGRESS TOWARD HER GOALS, AND PT WAS RECEPTIVE. RT BKA INCISION IS INTACT WITH SMALL AREA OF SEROSANGUINOUS DRAINAGE AT CENTER OF INCISION LINE. EBEN ARE INTACT, AND AREA REDRESSED WITH XEROFORM GAUZE AND KERLEX WRAP, MICA WRAP. PT TOLERATED WELL.
--- NOTE | 2020-11-15 01:27 | NUR ---
DRESSING INTACT, SEROSANGINOUS DRAINAGE FROM ONE STAPLE SPOT SEEN DURING DRESSING CHANGE. IV ANTIBIOTIC GIVEN THROUGH LFA SALINE LOCK. PATIENT DENIES PAIN AND IS TURNING SELF IN BED, ALWAYS LYING ON ONE SIDE OR THE OTHER, NEVER ON HER BACK.
--- NOTE | 2020-11-15 15:34 | NUR ---
ASSUMED CARES AT 0700. PT AWAKE, ALERT AND ORIENTED*4. DENIES PAIN AT THIS TIME. BP LOW THIS AM, BP LOWERING MEDS WITHHELD. ALL OTHER VITALS REMAINED STABLE. RIGHT BKA INCISION CLEANED AND DRESSING CHANGED BY WOUNDCARE. SACRAL AREA CLEANED AND Z-GUARD+SILVERDENE ADMINISTERED PER ORDER. LEFT FOREARM 1V REMAINS INTACT AND PATENT, IV ANTIBIOTICS ADMINISTERED PER ORDER. PT UP WITH MOD ASSIST1, GB AND WALKER AND TOLERATED WELL. Q1H VISUAL CHECKS. CALL LIGHT WITHIN. FALL PRECAUTIONS IN PLACE
--- NOTE | 2020-11-15 15:52 | NUR ---
Spoke at length with Daughter Bess Ramirez at [phone] and at this time she and her siblings are planning on discharging the patient from [address] to the airport (CM can set up transportation) and have a wheelchair meet her at the gate and fly to [facility] on a direct 40 minute flight. Once there her brother who works at [employer] will get the patient and take her to Bess's home, which is located 10 minutes away. Bess, her children, siblings and her spouse will care for the patient in her home. Bess has reached out to [facility] and has a friend who will assist the patient with appointments as needed as prescribed at discharge along with the transition to [place] Medicaid. Bess is continuing to "work" on her mother with her other siblings and grandchildren as the Mother wishes to stay in [place], but is aware her care needs are going to be more than she and her s/o can handle at this time. Informed Bess that I will let the Rehab team know of their plans and will alert the CM to follow up as the discharge date gets closer. Will need the rehab team to solidify the actual date of discharge in order for the flight to be arranged sooner than later. CM will continue to follow the case till discharge.
[2020-11-15 19:51] VITALS: BP 113/69
--- NOTE | 2020-11-16 01:34 | NUR ---
DAILY SENNEKOT INITIATED SINCE PATIENT HAD APPARENTLY GONE 3 DAYS WITHOUT A BOWEL MOVEMENT, MODERATE SOFT BM 3 HOURS AFTER TAKING PILL. PATIENT PIVOTED TO WITH MIN ASSIST AND THEN USED GRAB BAR IN BATHROOM TO TRANSFER TO TOILET WITH STANDBY ASSIST. Z-GUARD TO SACRUM WOUND WHILE UP. IV ANTIBIOTIC TO LFA IV SITE AT MIDNIGHT, FLUSHES WELL. 4 UNITS OF SSI WERE GIVEN AT HS FOR GLUCOSE OF 217
[2020-11-16 08:00] VITALS: BP 92/54
[2020-11-16 09:30] VITALS: BP 115/66
--- NOTE | 2020-11-16 12:38 | NUR ---
ASSUMED CARE AT 0700. PT IS ALERT AND ORIENTATED, COMPLAINED NO ABLE TO SLEEP WELL DUE TO COUPLE OF TIMES GOING TO THE BATHROOM FOR BM. DENIES ANY PAIN. COMPLAINED OF DIZZY. BP 92/54 HR 45, APICAL HR 58. PT ENC TO INCREASE PO INTAKE AND TO INCREASE ORAL INTAKE. AFTER AN HOUR, BP CHECKED 110/66, HR 92 WITH NO MORE COMPLAINS OF DIZZINESS. PARTICIPATING IN THERAPIES WELL. DRESSING CHANGES DONE TO SACRUM AND R BKA. IV CEFEPIME IN PROGRESS. CONT TO MONITOR.
--- NOTE | 2020-11-16 13:56 | NUR ---
cm touched based w/xavi re d/c planning. xavi stated she hadnt had an opportunity to talk w/pt again, re plan for pt to d/c to [place] as she had burial for her cousin today. xavi has been given the d/c date of 11/23/20. xavi stated her brother works at the [employer] and they plan to meet pt with a w/c the family will purchase. xavi stated she has already started pricing w/c. xavi stated pt s/o olivier will not be in support of the family decision to have pt d/c to [place] b/c "he know we want the best for her." cm to cont to follow.
[2020-11-16 19:41] VITALS: BP 109/58
--- NOTE | 2020-11-17 02:58 | NUR ---
assumed care approx 1900 evening 11/16. pt lying in bed sleeping at change of shift. pt awoke to take hs meds, alert and oriented x4. pt up to w/c to bathroom at hs and had large bm. pt appears to be sleeping soundly with hourly rounding checks. bed alarm on and call light in reach. will continue to monitor.
[2020-11-17 06:22] LABS: ABSOLUTE NEUTROPHILS 2.6 thou/uL (1.4-8.2); BASOPHILS 0.6 % (0.0-2.0); HEMATOCRIT 25.6 % (37.0-47.0); HEMOGLOBIN 8.2 gm/dL (12.0-15.0); LYMPHOCYTES 35.1 % (24.0-44.0); MCH 27.1 pg (26.0-34.0); MCHC 31.9 g/dL (28.0-37.0); MCV 84.9 fL (80.0-100.0); MONOCYTES 9.9 % (1.0-8.0); PLATELET COUNT 344 thou/uL (150-400); POLYS 52.4 % (36.0-66.0); RBC 3.01 mil/uL (4.20-5.00); RDW 17.2 % (10.5-14.5); WBC 4.9 thou/uL (4.0-11.0)
[2020-11-17 06:37] LABS: CALCIUM 8.5 mg/dL (8.5-10.1); CREATININE 1.1 mg/dL (0.6-1.0); MAGNESIUM 2.3 mg/dL (1.8-2.4); POTASSIUM 4.7 mmol/L (3.5-5.1)
[2020-11-17 07:20] VITALS: BP 131/73
--- NOTE | 2020-11-17 11:24 | NUR ---
ASSUMED CARE AT 0700. PT SLEPT FAIRLY WELL. DENIES ANY PAIN. BLOOD SUGAR RUNS HIGH IN THE 150-200S AND TREATED WITH INSULIN AND ORAL HYPERGLYCEMIC AGENTS. PT ABLE TO ADMINISTER INSULIN AND DEMONSTRATE WELL. APPETITE IS FAIR AND TAKES HER SUPPLEMENTS MOST OF THE TIME. WOUND CARE DONE TO SACRUM AND R BKA. DR GONZALEZ SAW WOUND AND WILL TRANSITION IV CEFEPIME TO PO CEFDINIR. HAD A LARGE BM TODAY. DIURESING WELL. PARTICIPATING IN THERAPY. DC PLANNING ON 10/24. CONT TO MONITOR.
--- NOTE | 2020-11-17 12:18 | NUR ---
Nutrition followup: pt continues on rehab unit S/P right BKA. Weight down to 151# however pt on lasix. Initial UBW 160# prior to BKA. Was 155# one week ago. Follow trends. Is eating fairly well, 50-100% of meals and generally 100% Glucerna supplements BID. Protein sources/needs reviewed. pt voiced no questions related to prior DM diet education. BG 146-193. Low nutrition risk.
[2020-11-17 20:00] VITALS: BP 116/68
--- NOTE | 2020-11-18 02:38 | NUR ---
ASSUMED CARE APPROX 1900 EVENING 11/17. PT ALERT AND ORIENTED X4, PLEASANT AND COOPERATIVE. PT UP TO W/C AND INTO BATHROOM TO HAVE BM ON TOILET. STUMP DRSG C/D/I. PT APPEARS TO BE SLEEPING SOUNDLY WITH HOURLY ROUNDING. BED ALARM ON AND CALL LIGHT IN REACH, WILL CONTINUE TO MONITOR.
[2020-11-18 08:00] VITALS: BP 114/66
--- NOTE | 2020-11-18 15:51 | NUR ---
ASSUMED CARES AT 0700. PT AWAKE, ALERT AND ORIENTED*4. DENIES PAIN AT THIS TIME. VITALS REMAIN STABLE. PT REPORTED TO THIS RN THAT BOYFRIEND WHO IS ALSO HER DESIGNATED VISITOR TESTED POSITIVE FOR COVID YESTERDAY. THE SAID BOYFRIEND HAS BEEN VISITING THIS PATIENT DAILY. PHYSICIAN NOTIFIED OF THIS FINDING, COVID TEST ORDERED FOR PT AND PT PLACED ON ISOLATION AWAITING RESULTS. SACRAL WOUND CLEANED Z-GUARD PLUS SILVERDENE CREAM APPLIED PER ORDER. LEFT BKA SITE CLEANED AND DRESSING CHANGED. PT UP WITH 1 CONTACT GUARD ASSISTANCE TO W/C AND BATHROOOM, TOLERATED WELL. TOLERATED ALL THERAPIES WELL. FREQ VISUAL CHECKS. CALL LIGHT WITHIN REACH. FALL PRECAUTIONS IN PLACE
--- NOTE | 2020-11-18 16:49 | HC ---
[facility] [place] [address] CONSULTATION Name: ENRRIQUE VILLEGAS Room #: 511-P ADM IN M.R.#: [id number] Admission: 11/08/20 Attend Phys: Mu Sy MD Discharge: Date of : 69 Report #: [id number] THIS REPORT FOR: cc: NO FAMILY PHYSICIAN or PCP NO FAMILY PHYSICIAN or PCP Mateus Currie PhD ~ NEUROBEHAVIORAL STATUS EXAM CLINICAL PRESENTATION: The patient is a 55-year-old female admitted to [facility] on 11/06 with worsening of her right foot wound. She underwent a right TM by Orthopedics. The patient was discharged home with oral Augmentin and local wound care orders. She was readmitted and underwent a [id number]-[id number] amputation. The patient has a medical problem list that includes cellulitis, diabetes, failure of outpatient treatment, osteomyelitis and peripheral vascular disease. Her assessment on admission to the rehabilitation unit is a right foot recurrent osteomyelitis, status post [id number] amputation on 11/03/2020, questionable vasculitis, acute blood loss anemia status post transfusion, premorbid peripheral neuropathy, peripheral vascular disease, CAD, history of stent, CHF, cardiomyopathy with ejection fraction of 15-20%, hypertension, type 2 diabetes mellitus with an H1c of 7.9, hypothyroidism and hypokalemia. A complete description of her medical condition and history can be found in her medical record. Neuropsychological consultation was requested to provide assistance in the assessment of cognitive and emotional status and provide recommendations. Prior to this most recent admission, she was living independently with her in their own home. The patient is , with 4 children. She has a 9th grade education. 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 There is no prior history of treatment for depression or anxiety. Patient has limited use of Ethiopian as Thai is her primary language. TECHNIQUES UTILIZED: Clinical interview, review of medical records, staff consultation and behavioral observations, mini mental status exam to standard version and family interview -- daughter and . EXAMINATION FINDINGS: The patient was alert and cooperative with the assessment. She accurately indicated the reason for her hospitalization. She primarily speaks Thai and it was necessary to utilize her daughter for interpretive services. The patient does not report problems with sleep, appetite, word finding, alcohol or drug abuse. Normal use of caffeine. Subjective depression is reported. The patient has intermittent anxiety. [facility] [address] [place] [address] CONSULTATION Name: JOSIAH WHITAKERENRRIQUE Room #: 511-P [facility]#: [id number] Admission: 11/08/20 Attend Phys: Mu Sy MD Discharge: Date of : 69 Report #: [id number] Her performance on the MMSE 2 brief version is severely impaired with a raw score of 10/16. She was 3/3 for initial registration, 4/5 for orientation to time, 3/[address] and 0/3 for immediate recall of 3 items after a brief time delay and distraction. Standard version of the MMSE 2, it was 21/30, which is a T score of 31 and percentile rank of 3. She was 2/5 for serial 7's. The patient was within normal limits for naming, repetition, comprehension, reading, writing and copying a simple geometric design. The patient was able to draw a clock and set the hands at a designated time. The patient is presenting with decreased auditory or immediate recall along with sustained concentration and attention. Ethiopian is a second language interferes with complete accuracy in cognitive evaluation. However, cognitive deficits are suggested. 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 Unspecified anxiety disorder. RECOMMENDATIONS: The patient has had periods of irritability, likely associated with anxiety and depressed mood. Additionally, she is present with variability in cognitive functioning affecting primarily memory and sustained concentration. Upon her return home, initial assistance in management of medical, financial and nutritional needs are indicated. The patient will require assistance in the management medical recommendations. Issues regarding language and lack of educational information regarding her medical condition have likely contributed to her current medical crisis. Educational information and availability of an translator/interpreter will be necessary following discharge to effectively manage her medical condition. Thank you very much for allowing me to provide the consultation on this patient. <ELECTRONICALLY SIGNED> By: Mateus Currie, PhD 11/18/20 [id number] Mateus Currie, PhD /nt
[2020-11-18 20:16] VITALS: BP 123/71
--- NOTE | 2020-11-18 20:55 | NUR ---
PT MOVED TO ROOM 357 WITH ALL BELONGINGS. SPOKE TO VRT MECHANIC WHO ADVISED FOR DISCHARGE TO BE PUT IN COMPUTER. VITALS TAKEN, HS MEDS GIVEN. REPORT GIVEN TO BECCA DORAN RN IN [facility].
[2020-11-19] MEDS ORDERED: LIPITOR 10 MG10 M1 PO (00:50)
== END 2020-11-18 21:04 | disposition home or self-care (01) | DRG 947 ==
PROVIDERS: Nurse Practitioner; Nurse Practitioner Family; Specialist; ADMIT Physical Medicine & Rehabilitation; ATTEND Physical Medicine & Rehabilitation
DX: R53.81 Other malaise (principal); J96.01 Acute respiratory failure with hypoxia; U07.1 COVID-19; M86.8X7 Other osteomyelitis, ankle and foot; I42.9 Cardiomyopathy, unspecified; D62 Acute posthemorrhagic anemia; L03.115 Cellulitis of right lower limb; M31.9 Necrotizing vasculopathy, unspecified; E11.69 Type 2 diabetes mellitus with other specified complication; E87.6 Hypokalemia; I25.10 Atherosclerotic heart disease of native coronary artery without angina pectoris; E11.51 Type 2 diabetes mellitus with diabetic peripheral angiopathy without gangrene; E11.42 Type 2 diabetes mellitus with diabetic polyneuropathy; E03.9 Hypothyroidism, unspecified; I50.9 Heart failure, unspecified; G31.84 Mild cognitive impairment of uncertain or unknown etiology; F41.9 Anxiety disorder, unspecified; I11.0 Hypertensive heart disease with heart failure; L89.150 Pressure ulcer of sacral region, unstageable; Z90.49 Acquired absence of other specified parts of digestive tract; Z89.511 Acquired absence of right leg below knee; Z95.5 Presence of coronary angioplasty implant and graft
CPT/HCPCS: 10112

== ENCOUNTER 2020-11-18 20:07 | Inpatient (IN) | payer MEDICAID ==
[~2020-11-18] VITALS: Ht 157.5 cm; Wt 66.7 kg
[2020-11-18 20:50] VITALS: BP 129/72
[2020-11-19] MEDS ORDERED: LIPITOR 10 MG10 M1 PO (00:50)
[2020-11-19 03:48] VITALS: BP 122/80
--- NOTE | 2020-11-19 04:05 | NUR ---
PT TRANSFER FROM N 11/18--COVID+. TRANSFERRING TO BEDSIDE COMMODE WITH ASSIST. DENIES PAIN. RSETING COMFORTABLY. NO NEEDS VOICED. CALL LIGHT WITHIN REACH. FREUENT OBSERVATION.
[2020-11-19 06:01] LABS: HEMATOCRIT 26.4 % (37.0-47.0); HEMOGLOBIN 8.4 gm/dL (12.0-15.0); MCH 26.8 pg (26.0-34.0); MCHC 31.7 g/dL (28.0-37.0); MCV 84.6 fL (80.0-100.0); RBC 3.12 mil/uL (4.20-5.00); RDW 17.5 % (10.5-14.5); WBC 4.8 thou/uL (4.0-11.0)
[2020-11-19 06:04] LABS: CALCIUM 8.6 mg/dL (8.5-10.1); POTASSIUM 4.8 mmol/L (3.5-5.1)
[2020-11-19 07:33] VITALS: BP 126/81
[2020-11-19 15:26] VITALS: BP 111/67
--- NOTE | 2020-11-19 17:12 | NUR ---
ASSUMMED PT CARE AT APPROXIMATELY 0700. PT A&O X4. ASSESSMENT CHARTED. FALL PRECAUTIONS IN PLACE. PT DENIES HAVING CHEST PAIN. PT DENIES HAVING SOB. PT DENIES HAVING ACUTE PAIN. EDUCATED PT ABOUT POC. PT STATED UNDERSTANDING AND DENIED HAVING FURTHER QUESTIONS. INFORMED DR. JUAREZ OF PT NOT WANTING IV. DR. JUAREZ STATED UNDERSTANDING AND STATED PT DID NOT NEED AN IV. VITAL SIGNS STABLE. BLOOD SUGARS STABLE. PT COMFORTABLE. PT DENIES HAVING FURTHER CONCERNS.
[2020-11-19 21:17] VITALS: BP 124/78
[2020-11-20 04:39] LABS: HEMATOCRIT 27.8 % (37.0-47.0); HEMOGLOBIN 8.9 gm/dL (12.0-15.0); MCH 26.7 pg (26.0-34.0); MCHC 31.8 g/dL (28.0-37.0); RBC 3.32 mil/uL (4.20-5.00); RDW 16.7 % (10.5-14.5); WBC 3.6 thou/uL (4.0-11.0)
[2020-11-20 04:55] LABS: MAGNESIUM 2.4 mg/dL (1.8-2.4); POTASSIUM 4.7 mmol/L (3.5-5.1)
--- NOTE | 2020-11-20 05:49 | NUR ---
VSS OVERNIGHT. PT CAN STAND AND PIVOT TO USE BSC. R BKA WRAPPED WITH MICA WRAP AND C/D/I. ACCUCHECK AT 2100 WAS 319. PT HAS NO COMPLAINTS. CALL LIGHT WITHIN REACH.
[2020-11-20 07:35] VITALS: BP 124/80
--- NOTE | 2020-11-20 10:27 | NUR ---
RD consult received. Pt recently s/p [facility] on 11/03, tranferred to inpatient rehab, and now admit to to medical floor for COVID+. Familiar with pt from previous admit. Generally eats well and likes to drink glucerna shakes-will order. Has been recently educated on diabetic diet. A1C 7.9 from October, and current BG improving with glipizide, and insulin coverage. Wt stable in 150s since ampuation. Vitamin D levels depleted 19.5-pt has vitamin D ordered as well as other supplementation for COVID protocol of vitamin C, zinc, thiamine. Low nutrition risk with interventions in place
--- NOTE | 2020-11-20 11:43 | NUR ---
PT ALERT AND ORIENTED TIMES FOUR. VSS. PT DENIES PAIN/SOA. PT UP WITH STANDBY ASSIST. PT TOLERATES MEDS AND MEALS. PT WORKED WELL WITH PT/OT TODAY. PT SLOWLY PROGRESSING TOWCANDACES POC GOALS.
[2020-11-20 15:47] VITALS: BP 116/72
--- NOTE | 2020-11-20 16:22 | NUR ---
INITIAL ASSESSMENT: JESICA reviewed chart and spoke with nursing and attending physician. Pt was admitted from 5 due to positive COVID-19 test. Pt placed in Enhanced Isolation. SW is afebrile and not requiring O2. Discharge date on 5N was anticipated for , 11/23. JESICA placed call to pt's room. No answer. JESICA spoke with pt's dtr, Carolyn, via phone to discuss discharge plan. Pt will be discharging home with her s/o, Harry, due to pt being COVID positive. Pt will need to be retested and be negative in order to move to [place] to be near family. JESICA discussed pt's discharge needs. Pt's family is going to order a w/c to be delivered to pt's apt. JESICA confirmed pt's home address in [place]. JESICA faxed referral to [facility]. JESICA notified intake of new referral. JESICA is following to assist as needed with discharge planning.
[2020-11-20 19:24] VITALS: BP 127/75
[2020-11-21 03:38] VITALS: BP 109/63
[2020-11-21 07:13] VITALS: BP 116/79
--- NOTE | 2020-11-21 11:02 | NUR ---
SW reviewed chart and spoke [facility] nursing and attending physician. Pt remains in Enhanced Isolation due to COVID-19. Pt is afebrile and not requiring O2. PT is completing course of Ivermectin. Discharge home is anticipated for 11/23. JESICA received call back from Diann at [facility], who states they are not able to provide [facility] HH to pt at this time. JESICA contacted [facility] liaison, who states they are not able to accept pt due to staffing. JESICA contacted [place] [facility] liaison, who is checking with her administration to see if they are able to provide HH visits. Awaiting input at this time. Pt's family is ordering a w/c to be delivered to pt's home. JESICA is following to assist as needed with discharge planning.
[2020-11-21 11:04] VITALS: BP 131/83
[2020-11-21 15:05] VITALS: BP 131/80
--- NOTE | 2020-11-21 18:25 | NUR ---
ASSUMED PATIENT CARE AT 0700. A/O X4. PLEASANT. DENIES PAIN. NO SOB. OT ASSISTED PATIENT SIT ON FLOOR DRUING THE THERAPY. NO INJURY. PROGRESSING TOWARDS POC GOALS.
[2020-11-21 19:25] VITALS: BP 130/82
[2020-11-22 03:05] VITALS: BP 119/65
[2020-11-22 07:22] VITALS: BP 121/76
--- NOTE | 2020-11-22 15:10 | NUR ---
JESICA reviewed chart and spoke with nursing and attending physician. Pt remains in Enhanced Isolation due to COVID-19. Pt is afebrile and not requiring O2. Pt is completing course of Ivermectin today. Discharge home is anticipated for tomorrow. SW received voice message from pt's dtr, Carolyn, stating that family has ordered a w/c for pt, but it will not be delivered until 11/28 at the earliest. Pt will need a w/c for discharge. JESICA discussed with Magda Garvey and [facility] liaisons. Nathan would take several days to a week to get authorization from their business office. [facility] is able to deliver the w/c to pt tomorrow. Director of Case [facility] authorized purchase of new w/c. [facility] is able to accept pt on service for [facility] visits. JESICA spoke with pt's dtr, Carolyn, to provide update and discuss discharge plan for tomorrow. Carolyn is agreeable with plan. Pt will need meds filled prior to discharge and will likely need w/c van transportation home. JESICA is following to assist as needed with discharge planning.
[2020-11-22 15:17] VITALS: BP 141/54
[2020-11-22 15:28] VITALS: BP 118/76
--- NOTE | 2020-11-22 18:06 | NUR ---
ASSUMED PATIENT CARE AT 0700. PROGRESSING TOWARDS POC GOALS.
[2020-11-22 22:04] VITALS: BP 122/86
[2020-11-23 02:44] VITALS: BP 117/67
--- NOTE | 2020-11-23 05:29 | NUR ---
ASSESSMENT: ASSUMED CARE OF PT AT 0130, RECEIVED REPORT FROM JUAN MENDEZ. PT SLEEPING, EASY TO AROUSE. VSS, AFEBRILE. RIGHT BKA WITH SUTURES INTACT. DENIES PAIN, SOB AND N/V. MED SURG STATUS. SLOW PROGRESS TOWARDS DC GOALS, WILL CONTINUE TO MONITOR.
[2020-11-23 07:32] VITALS: BP 116/64
[2020-11-23] MEDS ORDERED: PREDNISONE 10 M10 MG PO ×2 (11:07→13:32)
[2020-11-23] MEDS ORDERED: LANTUS100 UNIT/M SUBQ ×2 (11:07→13:32)
[2020-11-23] MEDS ORDERED: HUMALOG100 UNIT/1 SUBQ ×2 (11:07→13:32)
[2020-11-23] MEDS ORDERED: IRON325 PO ×2 (11:07→13:31)
[2020-11-23] MEDS ORDERED: ZINC SULFATE 2220 MG PO ×2 (11:07→13:31)
[2020-11-23] MEDS ORDERED: SSD CREAM 1% 5050 GM TOP ×2 (11:07→13:32)
[2020-11-23] MEDS ORDERED: PEPCID20 MG PO (11:07)
[2020-11-23] MEDS ORDERED: VITAMINC500 PO ×2 (11:07→13:32)
[2020-11-23] MEDS ORDERED: FLONASE 0.05%50 MCG NASAL (11:07)
[2020-11-23] MEDS ORDERED: VITAMIN B-1100 M2 PO ×2 (11:07→13:32)
[2020-11-23] MEDS ORDERED: LASIX 20 MG TAB20 MG PO ×2 (11:07→13:32)
[2020-11-23] MEDS ORDERED: CLARITIN10 MG PO (11:07)
[2020-11-23] MEDS ORDERED: CEFDINIR300 MG PO ×2 (11:07→13:31)
[2020-11-23] MEDS ORDERED: FOLIC ACID0.4 MG PO ×2 (11:07→13:32)
[2020-11-23 12:02] VITALS: BP 116/64
[2020-11-23] MEDS ORDERED: PLAVIX 75 MG TA75 MG PO (13:31)
[2020-11-23] MEDS ORDERED: ISOSORBIDE MONO30 M1 PO (13:31)
[2020-11-23] MEDS ORDERED: LIPITOR 10 MG10 M1 PO (13:31)
--- NOTE | 2020-11-23 14:33 | NUR ---
DISCHARGE NOTE: JESICA reviewed chart and spoke with nursing and attending physician. Pt is medically stable to discharge home today with [facility] . W/c delivered to pt's room by [facility]ison earlier this afternoon. JESICA faxed finalized discharge orders/summary to [facility] and confirmed info was received with Jennifer in intake. JESICA arranged w/c van transportation through [facility] for [phone]. Director of Case Mgmt authorized transportation. JESICA requested scripts to be faxed to [facility] to be filled. Case mgmt to vouch. JESICA spoke with pharmacy to notify. Hospitalist TEST SPECIALIST sent scripts. JESICA faxed face sheet to pharmacy. JESICA spoke with pt's dtr, Carolyn, via phone to provide update. Carolyn is agreeable [facility] discharge plan. JESICA updated pt's nurse regarding discharge. Contact info for HH and [facility] placed in pt's discharge summary. No additional SW needs identified at this time, but is available to assist should needs arise.
--- NOTE | 2020-11-23 15:30 | NUR ---
PT ASSESSED AT START OF SHIFT. FEELING BETTER. TRANSFERRING HERSELF W/ STANDBY TO CHAIR. DSNG CHANGED PER ORDERS. SHOWED PT DRESSING CHANGE PROTOCOL. STATES BOYFRIEND WILL BE HELPING HER. NO C/O PAIN. EATING AND DRINKING WELL. DISCHARGED W/ ALL BELONGINGS PER [facility].
== END 2020-11-23 15:32 | disposition home health service (06) | DRG 177 ==
LOC: 3W 20:07
PROVIDERS: Nurse Practitioner Family; ADMIT Internal Medicine; ATTEND Internal Medicine
DX: U07.1 COVID-19 (principal); J12.89 Other viral pneumonia; J96.01 Acute respiratory failure with hypoxia; I42.9 Cardiomyopathy, unspecified; M86.8X7 Other osteomyelitis, ankle and foot; L03.115 Cellulitis of right lower limb; E78.5 Hyperlipidemia, unspecified; E11.51 Type 2 diabetes mellitus with diabetic peripheral angiopathy without gangrene; I50.9 Heart failure, unspecified; I25.10 Atherosclerotic heart disease of native coronary artery without angina pectoris; E03.9 Hypothyroidism, unspecified; E11.69 Type 2 diabetes mellitus with other specified complication; D64.9 Anemia, unspecified; E11.42 Type 2 diabetes mellitus with diabetic polyneuropathy; L89.150 Pressure ulcer of sacral region, unstageable; I11.0 Hypertensive heart disease with heart failure; Z79.899 Other long term (current) drug therapy; Z95.5 Presence of coronary angioplasty implant and graft; Z90.49 Acquired absence of other specified parts of digestive tract; Z79.82 Long term (current) use of aspirin
CPT/HCPCS: 10779

== ENCOUNTER 2020-12-17 12:02 | Emergency (ER) | payer OTHER ==
[~2020-12-17] VITALS: Ht 160 cm; Wt 63.5 kg
[~2020-12-17 12:02] MED LIST changes: +CEFDINIR300 MG PO; +CLARITIN10 MG PO; +FLONASE 0.05%50 MCG NASAL; +FOLIC ACID0.4 MG PO; +HUMALOG100 UNIT/1 SUBQ; +IRON325 PO; +LANTUS100 UNIT/M SUBQ; +LASIX 20 MG TAB20 MG PO; +LIPITOR 10 MG10 M1 PO; +PEPCID20 MG PO; +PREDNISONE 10 M10 MG PO; +SSD CREAM 1% 5050 GM TOP; +VITAMIN B-1100 M2 PO; +VITAMINC500 PO; +ZINC SULFATE 2220 MG PO
[2020-12-17] MEDS ORDERED: HYDROCODON-ACE1 EAC7 PO (13:16)
[2020-12-17] MEDS ORDERED: DOXYCYCLINE 10100 MG PO (13:16)
[2020-12-17 13:52] VITALS: BP 118/85
== END 2020-12-17 14:00 | disposition home or self-care (01) ==
LOC: ER 12:02
DX: L03.115 Cellulitis of right lower limb (principal); M79.604 Pain in right leg; E11.9 Type 2 diabetes mellitus without complications; E03.9 Hypothyroidism, unspecified; I11.0 Hypertensive heart disease with heart failure; I50.9 Heart failure, unspecified; E11.51 Type 2 diabetes mellitus with diabetic peripheral angiopathy without gangrene; Z98.890 Other specified postprocedural states; Z90.711 Acquired absence of uterus with remaining cervical stump; Z89.511 Acquired absence of right leg below knee; Z79.82 Long term (current) use of aspirin; Z79.899 Other long term (current) drug therapy; Z79.2 Long term (current) use of antibiotics; Z79.4 Long term (current) use of insulin